=== PATIENT | female | born 1980 | race Caucasian/White ===

== ENCOUNTER 2018-03-19 08:16 | Day surgery (SDC) | payer OTHER ==
[~2018-03-19 08:16] MED LIST: Buffered Lidocaine 0.9% SYRIN* 5 ML/SYR SYRINGE INTRADERM ONE; Dexamethasone TAB* 4 MG PO ONE; DiMENhydriNATE IV* 50 MG/ML VIAL IV PUSH PRN; Famotidine IV* 10 MG/ML 2 ML (20 mg) IV ONE; Morphine INJ* 2 MG/ML 1 ML SYRINGE (TWO MG - NEW SYRINGE VERSION) IV PRN; Naloxone* 0.4 MG/ML 1 ML VIAL IV PRN; Ondansetron TAB* 4 MG PO ONE; PROCHLORPERAZINE INJ 5 MG/ML 2 ML VIAL IV PRN; Scopolamine 1.5 mg* PATCH TRANSDERM ONE; fentaNYL* 50 MCG/ML 2 ML VIAL (100 MCG VIAL) IV PRN; oxyCODONE/Acetamin 5/325 MG* TAB PO PRN
[2018-03-19] MEDS ORDERED: Ondansetron ODT TAB* 4 MG ONE (08:17)
[2018-03-19] MEDS ORDERED: Famotidine IV* 10 MG/ML 2 ML (20 mg) ONE (08:17)
[2018-03-19] MEDS ORDERED: Dexamethasone TAB* 4 MG ONE (08:17)
[2018-03-19] MEDS ORDERED: Scopolamine 1.5 mg* PATCH ONE (08:18)
[2018-03-19] MEDS ORDERED: Buffered Lidocaine 0.9% SYRIN* 5 ML/SYR SYRINGE ONE (08:18)
[2018-03-19] MEDS ORDERED: Ferric Subsulfate* 8 ML BTL ONE (09:14)
[2018-03-19] MEDS ORDERED: Lidocaine 2% W/EPI 1:100,000* 20 ML MDV ONE (09:15)
[2018-03-19] MEDS ORDERED: Iodine Strong (LUGOL'S)* 14 ML BTL ONE (09:15)
[2018-03-19] MEDS ORDERED: Lidocain 1% EPI 1:100,000 * 30 ML MDV ONE (09:15)
[2018-03-19] MEDS ORDERED: Acetic Acid 0.25%* 250 ML BTL ONE (09:18)
[2018-03-19] MEDS ORDERED: fentaNYL* 50 MCG/ML 2 ML VIAL (100 MCG VIAL) ONE (09:37)
[2018-03-19] MEDS ORDERED: KETAMINE HCL* 50 MG/ML 10 ML VIAL ONE (09:37)
[2018-03-19] MEDS ORDERED: Midazolam* 1 MG/ML 5 ML VIAL (5 MG) ONE (09:38)
[2018-03-19] MEDS ORDERED: Propofol* 10 MG/ML 20 ML BTL IV PUSH ONE (10:37)
[2018-03-19] MEDS ORDERED: Lidocaine 2% PF * 5 ML VIAL ONE (10:37)
[2018-03-19] MEDS ORDERED: Ketorolac INJ* 30 MG/ML 1 ML VIAL ONE (11:07)
[2018-03-19] MEDS ORDERED: Fluorescein 10% INJ* 100 MG/ML AMP ONE (11:30)
[2018-03-19] MEDS ORDERED: Morphine VIAL* 10 MG/ML 1 ML VIAL ONE (11:43)
[2018-03-19] MEDS ORDERED: ceFAZolin 2 GM in NS PREMIX(*) 2 GM/100 ML BAG IVPB ONE (12:09)
[2018-03-19 12:49] VITALS: BP 117/93
--- NOTE | 2018-03-20 17:53 | OP ---
DATE OF OPERATION: 03/19/18 [facility] DATE OF : 78 SURGEON: Dr. Heather Joshua. OPERATIONS ANALYST: Dr. Tomas Juan. PRE-OP DIAGNOSES: 1. Cervical intraepithelial neoplasia 3. 2. Severe cervical dysplasia. POST-OP DIAGNOSES: 1. Cervical intraepithelial neoplasia 3. 2. Severe cervical dysplasia. 3. High suspicion for invasive squamous cell carcinoma of the cervix. OPERATIVE PROCEDURE: Cold knife conization, cystoscopy, removal of Mirena IUD. ESTIMATED BLOOD LOSS: Less than 50 cc. URINE OUTPUT: 250 cc of clear yellow urine. FLUIDS: 1300 cc of crystalloid. FINDINGS: Revealed more than double the size of a lesion noted on colposcopy 2 weeks prior. Cone biopsy, apex of dissection site with approximately 1 cm to internal cervical os. It is a small inadvertent colpotomy about 1 cm in size. Normal bilateral ureteral jets noted. Normal bladder mucosa. Mirena IUD intact. SPECIMENS: Cervical cone and ECC. COMPLICATIONS: Inadvertent 1-cm colpotomy. DISPOSITION: Stable to recovery room. DESCRIPTION OF PROCEDURE: The patient was placed in dorsal lithotomy position. The legs were placed in candy cane stirrups. The perineum and vagina were prepped and draped in a sterile standard fashion. The patient was identified using universal protocol for correct procedure, position, and patient. A weighted speculum was placed in the vagina and the cervix was visualized and the area of biopsy from colposcopy had noted to be more than doubled in size from 2 weeks prior. Mirena IUD was removed with sponge forcep and noted to be intact. Lugol solution was applied. A paracervical block was placed using 20 cc of 2% lidocaine with epi. The self-cath was placed with drainage of clear yellow urine, 250 cc of cath was removed. At that point, the 0 Vicryl LigaSure sutures were placed at 3 and 9 o'clock on the cervix and a cervical cold knife conization was carried out using 11 scalpel blade without complications. There was a small colpotomy noted at 6 o'clock of 1 cm in size and this was reapproximated to the remainder of the posterior cervical wall. The area was digitally palpated and noted to be free of any bowel. At that point, the cervical specimen was then opened up at 12 o'clock and sent to Pathology. An endocervical curetting was then obtained. There was quite extensive disease noted, a grave concern for an invasive squamous cell carcinoma. The base of the cold knife conization was then circumferentially made hemostatic with figure -of-eight 0 Vicryl sutures. The cold knife conization site was noted to be hemostatic. At that point, given the need for a wide placement of the 3 and 9 o 'clock sutures, the decision was made to proceed with cystoscopy to assure that she had bilateral ureteral flow. The patient was given half an ampule of fluorescein IV and the cystoscopy was carried out using a 30-degree #22 cystoscope. The cystoscope was inserted. Bladder mucosa was inspected and noted to be intact with no defects and both bilateral ureteral jets were noted to be positive with fluorescein-stained urine. When the completion of the cystoscope was performed, the bladder was drained of urine and attention was then refocused to the cold knife conization, stay sutures at 3 and 9 o'clock were trimmed. The apex of the conization site was noted to be within 1 cm of the internal cervical os. Monsel was placed at the base of the dissection site. Hemostasis was assured. All sponge, needle, instrument, and blade counts were correct throughout the case. The patient was returned to dorsal lithotomy position and taken to recovery room in stable condition; and received 1 dose of 2 g of Ancef in recovery room, IV. Above findings and concerns were reviewed with the patient with plans when the final pathology returns for consultation with [facility] in [place] given the high likelihood of invasive carcinoma of the cervix. [id number]/[facility] #: [id number] [place]
[2018-03-22] MEDS ORDERED: Scopolamine PATCH Remove* 1 NOTE MISC PATCH OFF ONE (06:00)
== END 2018-03-19 14:38 | disposition home or self-care (01) ==
LOC: OR 08:16
PROVIDERS: ATTEND Obstetrics & Gynecology
DX: C53.9 Malignant neoplasm of cervix uteri, unspecified (principal)
CPT/HCPCS: 81025; 88305; 88307; A9270-GY; J0690; J1885; J2250; J2270; J2704; J3010; J8540

== ENCOUNTER → 2018-04-15 09:48 | Emergency (ER) | payer OTHER ==
[~2018-04-15 09:48] MED LIST changes: -Buffered Lidocaine 0.9% SYRIN* 5 ML/SYR SYRINGE INTRADERM ONE; -Dexamethasone TAB* 4 MG PO ONE; -DiMENhydriNATE IV* 50 MG/ML VIAL IV PUSH PRN; -Famotidine IV* 10 MG/ML 2 ML (20 mg) IV ONE; +Iohexol 350* (CONTRAST) 500 ML MDV IV ONE; -Morphine INJ* 2 MG/ML 1 ML SYRINGE (TWO MG - NEW SYRINGE VERSION) IV PRN; +Morphine INJ* 4 MG/ML 1 ML SYRINGE (NEW SYRINGE VERSION) IV ONE; +Morphine INJ* 4 MG/ML 1 ML SYRINGE (NEW SYRINGE VERSION) ONE; +Morphine VIAL* 10 MG/ML 1 ML VIAL IV ONE; +NS 0.9% 1000 ML* 1,000 ML IV ONE; -Naloxone* 0.4 MG/ML 1 ML VIAL IV PRN; -Ondansetron TAB* 4 MG PO ONE; -PROCHLORPERAZINE INJ 5 MG/ML 2 ML VIAL IV PRN; -Scopolamine 1.5 mg* PATCH TRANSDERM ONE; -fentaNYL* 50 MCG/ML 2 ML VIAL (100 MCG VIAL) IV PRN; -oxyCODONE/Acetamin 5/325 MG* TAB PO PRN
--- OUTSIDE RECORDS SUMMARY | 2018-04-15 10:24 | XMS REPORT | Continuity of Care Document ---
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 Unavailable Meghan Lara Primary Care Physician Unavailable Payers Type Date Identification Numbers Payment Provider Subscriber Effective: 2012 Policy Number: [id number] [employer] Ppo Edwin Almazan PayID: [id number] [address] [place] [address] Expires: 2012 Policy Number: [id number] [employer] Edwin Almazan Group Number: [id number] [address] PayID: [id number] [place] [address] Advance Directives Description No Information Available Problems Date Description Provider Status Onset: 10/03/2011 Dysplasia of cervix Heather Joshua MD Active Onset: 07/30/2012 Gynecologic examination Heather Joshua MD Active Onset: 07/30/2012 Screening for malignant neoplasm of Heather Joshua MD Active cervix Onset: 08/09/2013 Morbid obesity Heather Joshua MD Inactive Inactive: 03/19/2016 Family History Date Family Member(s) Problem(s) Comments Father Hypercholesterolemia Mother Hypercholesterolemia Mother Hypertension Mother Just Had Corotid Endardarectomy At Age 62 Mother Lymphoma Number of Children None Number of Siblings Siblings: 2 First Sister Hypercholesterolemia Second Sister Hypercholesterolemia Paternal Grandfather due to Prostate Cancer () Paternal Grandfather due to Old Age () Paternal Grandmother due to Old Age () Maternal Grandfather due to Diabetes () Maternal Grandmother due to Throat Cancer () Social History Type Date Description Comments Sex Unknown Education Highest level of education completed is an associate degree Marital Status Patient is single Living Situation Lives with boyfriend Occupation [employer]ing [employer] Cigarette Use Never smoked cigarettes Alcohol Drinks alcohol occasionally Tobacco Use Start: Unknown Patient has never smoked Drug Use Denies drug use Smoking Status Reviewed: 04/14/18 Patient has never smoked Daily Caffeine Occassional Coffee Exercise Type/Frequency Exercises sporadically Current Seat Belt/Car Seat Always uses a seat belt Currently Active The patient is currently sexually active Contraceptive Methods Does not currently use any method of control STD's Has HPV Allergies, Adverse Reactions, Alerts Description No Known Drug Allergies Medications Medication Date Status Form Strength Qnty SIG Indications Ordering Provider Nystatin 04/14/ Active Cream [id number] 45gm apply to Heather [facility] t/GM area bid MD Tres Singulair / Active Tablets 10mg 1 po qd prn Unknown 0000 Multivitamins / Active 1 po qd Unknown 0000 Calcium Citrate / Active Tablets 250mg Unknown 0000 [id number] / Active 1 po qd Unknown 0000 Vitamin D-3 / Active Capsules 1000Unit 60cap take one Unknown 0000 s tablet by mouth daily. Levocetirizine / Active Tablets 5mg 1 po qd prn Unknown Dihydrochloride 0000 Iron / Active Tablets 240(27Fe) 2 po qwk Unknown 0000 mg Celexa / Active Tablets 20mg 1 po qd Unknown 0000 Ibuprofen / Active Unknown 0000 Oxycontin / Active Unknown 0000 Clindamycin HCL 02/09/ Hx Capsules 300mg 14cap 1 by mouth Yessi 2016 - s twice a day Jump, 12/16/ x 7 ANP-C 2017 Clindamycin HCL 11/04/ Hx Capsules 300mg 14cap 1 by mouth Yessi 2016 - s twice a day Jump, 11/11/ x 7 ANP-C 2016 Mirena (52 MG) 04/17/ Hx IUD 20mcg/24H Tomas Juan MD 2017 Metrogel-Vaginal 02/25/ Hx Gel 0.75% 45gra 1 Tomas 2016 Wanda perez applicator MD Yessica 03/19/ every night 2015 at bedtime x 5 days Levonorgestrel/Et 08/31/ Hx Tablets 0.15-0.03 91tab Take One Heather hinyl Estradiol 2016 - mg s Tablet By Tres, 05/09/ Mouth One 2015 Time Daily Levonorgestrel/Et 11/30/ Hx Tablets 0.15-0.03 91tab Take One Heather hinyl Estradiol 2015 - mg s Tablet By Tres, 08/22/ Mouth One 2015 Time Daily Quasense 06/16/ Hx Tablets 0.15-0.03 1tabs Take 1 Heather 2012 - mg Tablet Tres, 07/22/ Daily 2011 Seasonale 06/17/ Hx Tablets 0.15-0.03 91tab Take One Heather 2007 - mg s Tablet By Tres, 11/30/ Mouth One 2014 Time Daily Aldara 05/20/ Hx Cream 5% 12uni Apply To Yessi 2006 - ts Affected Jump, 04/18/ Area 3X/WK ANP-C 2007 At Bedtime Nasonex /00/ Hx Unknown - 2008 Lexapro /00/ Hx 20mg Unknown - 2014 Zyrtec Allergy 00/ Hx Unknown - 2014 Vitamin D 400 /00/ Hx Unknown - 2014 Biotin 5000 00/ Hx 1 po qd Unknown - 2017 Xyzal /00/ Hx Unknown 2015 Lexapro 00/00/ Hx Tablets 10mg 1 by mouth Unknown 0000 - every day 2016 Fish Oil / Hx Capsules 1200mg 1 by mouth Unknown 0000 - every day 2017 Ginkgo Biloba 00/00/ Hx 1 po qd Unknown - 2017 Medications Administered in Office Medication Date Status Form Strength Qnty SIG Indications Ordering Provider PT SCRN Tbco Administered Injection Heather Id as Non User 018 MD Tres PT SCRN Tbco Administered Injection Heather Id as Non User 018 MD Tres Immunizations Description No Information Available Vital Signs Date Vital Result Comment 04/14/2018 9:44am BP Systolic 118 mmHg BP Diastolic 80 mmHg Height 63.5 inches 5'3.50" Weight 210.00 lb BMI (Body Mass Index) 36.6 kg/m2 Last Menstrual Period [id number] 0 03/17/2018 9:06am BP Systolic 118 mmHg BP Diastolic 82 mmHg Body Temperature 98.9 F Heart Rate 78 /min Respiratory Rate 16 /min Height 63.5 inches 5'3.50" Weight 205.00 lb BMI (Body Mass Index) 35.7 kg/m2 Last Menstrual Period [id number] 0 Parity 0 03/05/2018 2:18pm BP Systolic 116 mmHg BP Diastolic 80 mmHg Height 63.5 inches 5'3.50" Weight 205.00 lb BMI (Body Mass Index) 35.7 kg/m2 Last Menstrual Period [id number] 0 12/30/2017 3:37pm BP Systolic 102 mmHg BP Diastolic 76 mmHg Height 63.5 inches 5'3.50" Weight 204.00 lb BMI (Body Mass Index) 35.6 kg/m2 Last Menstrual Period [id number] 0 11/04/2016 8:40am BP Systolic 126 mmHg BP Diastolic 80 mmHg Height 63.5 inches 5'3.50" Weight 198.00 lb BMI (Body Mass Index) 34.5 kg/m2 Last Menstrual Period [id number] 0 Parity 0 09/06/2016 7:58am BP Systolic 124 mmHg BP Diastolic 80 mmHg Height 63.5 inches 5'3.50" Weight 191.00 lb BMI (Body Mass Index) 33.3 kg/m2 Last Menstrual Period [id number] 0 Parity 0 05/16/2016 2:27pm BP Systolic 98 mmHg BP Diastolic 68 mmHg Height 63.5 inches 5'3.50" Weight 189.00 lb BMI (Body Mass Index) 33.0 kg/m2 Last Menstrual Period [id number] 0 04/17/2016 8:12am BP Systolic 118 mmHg BP Diastolic 82 mmHg Height 63.5 inches 5'3.50" Weight 183.00 lb BMI (Body Mass Index) 31.9 kg/m2 Last Menstrual Period 7680804 0 Parity 0 03/19/2016 3:11pm BP Systolic 120 mmHg BP Diastolic 80 mmHg Height 63.5 inches 5'3.50" Weight 174.00 lb BMI (Body Mass Index) 30.3 kg/m2 Last Menstrual Period 7900061 0 Parity 0 03/19/2016 3:11pm Height 63.5 inches 5'3.50" 02/21/2016 8:06am BP Systolic 106 mmHg BP Diastolic 60 mmHg Height 63.5 inches 5'3.50" Weight 171.00 lb BMI (Body Mass Index) 29.8 kg/m2 Last Menstrual Period 8724089 0 Parity 0 09/01/2015 7:58am BP Systolic 106 mmHg BP Diastolic 76 mmHg Height 63.5 inches 5'3.50" Weight 190.00 lb BMI (Body Mass Index) 33.1 kg/m2 Last Menstrual Period 9997248 0 08/16/2014 9:02am BP Systolic 126 mmHg BP Diastolic 84 mmHg Height 63.75 inches 5'3.75" Weight 230.00 lb BMI (Body Mass Index) 39.8 kg/m2 Last Menstrual Period 4857810 0 Parity 0 08/09/2013 7:35am BP Systolic 118 mmHg BP Diastolic 80 mmHg Height 63.75 inches 5'3.75" Weight 242.00 lb BMI (Body Mass Index) 41.9 kg/m2 0 Parity 0 07/30/2012 8:05am BP Systolic 116 mmHg BP Diastolic 84 mmHg Height 63.5 inches 5'3.50" Weight 233.00 lb BMI (Body Mass Index) 40.6 kg/m2 Last Menstrual Period 0 0 07/22/2011 3:23pm BP Systolic 114 mmHg BP Diastolic 76 mmHg Height 63.25 inches 5'3.25" Weight 223.00 lb BMI (Body Mass Index) 39.2 kg/m2 Last Menstrual Period 0 05/2011-On 3 Month Pill 0 05/21/2010 10:52am BP Systolic 118 mmHg BP Diastolic 78 mmHg Height 63.25 inches 5'3.25" Weight 219.00 lb BMI (Body Mass Index) 38.5 kg/m2 Last Menstrual Period [id number] 0 05/15/2009 8:00am BP Systolic 110 mmHg BP Diastolic 62 mmHg Weight 229.00 lb Last Menstrual Period [id number] 0 10/24/2008 8:02am BP Systolic 112 mmHg BP Diastolic 80 mmHg Height 63 inches 5'3" Weight 220.00 lb BMI (Body Mass Index) 39.0 kg/m2 Last Menstrual Period [id number] 04/18/2008 8:01am BP Systolic 122 mmHg BP Diastolic 78 mmHg Height 63 inches 5'3" Weight 217.00 lb BMI (Body Mass Index) 38.4 kg/m2 Last Menstrual Period [id number] 10/23/2007 2:30pm BP Systolic 116 mmHg BP Diastolic 80 mmHg Height 63 inches 5'3" Weight 207.00 lb BMI (Body Mass Index) 36.7 kg/m2 06/18/2007 8:00am BP Systolic 110 mmHg BP Diastolic 60 mmHg Height 63 inches 5'3" Weight 214.00 lb BMI (Body Mass Index) 37.9 kg/m2 Last Menstrual Period 0 03/18/2007 3:41pm BP Systolic 106 mmHg BP Diastolic 74 mmHg Height 63 inches 5'3" Weight 206.00 lb BMI (Body Mass Index) 36.5 kg/m2 Last Menstrual Period 2075506 0 06/17/2006 10:35am BP Systolic 118 mmHg BP Diastolic 80 mmHg Height 63 inches 5'3" Weight 196.00 lb BMI (Body Mass Index) 34.7 kg/m2 Last Menstrual Period [id number] 05/20/2006 12:56pm BP Systolic 110 mmHg BP Diastolic 78 mmHg Weight 195.00 lb Last Menstrual Period [id number] Results Test Date Facility Test Result H/L Range Note Laboratory test 03/19/2018 [facility] Surgical SEE RESULT 1 , 2 [place] [address] Pathology BELOW [phone] Type And Screen 03/17/2018 [facility] [place] [address] Type [phone] Antibody Screen NEGATIVE CBC Auto Diff 03/17/2018 [facility] White Blood 7.2 10^3/uL 3.5-10.8 [place] [address] Count [phone] Red Blood Count 4.52 10^6/uL 4.00-5.40 Hemoglobin 14.9 g/dL 12.0-16.0 Hematocrit 45 % 35-47 Mean Corpuscular Volume 101 fL High 80-97 Mean Corpuscular Hemoglobin 33 pg High 27-31 Mean Corpuscular HGB Conc 33 g/dL 31-36 Red Cell Distribution Width 13 % 10.5-15 Platelet Count 243 10^3/uL 150-450 Mean Platelet Volume 9.8 um3 7.4-10.4 Abs Neutrophils 4.4 10^3/uL 1.5-7.7 Abs Lymphocytes 2.1 10^3/uL 1.0-4.8 Abs Monocytes 0.5 10^3/uL 0-0.8 Abs Eosinophils 0.2 10^3/uL 0-0.6 Abs Basophils 0 10^3/uL 0-0.2 Abs Nucleated RBC 0 10^3/uL Granulocyte % 61.2 % 38-83 Lymphocyte % 29.5 % 25-47 Monocyte % 6.5 % 0-7 Eosinophil % 2.3 % 0-6 Basophil % 0.5 % 0-2 Nucleated Red Blood Cells % 0.3 HIV 1/2 AB 03/17/2018 [facility] HIV 1 2 Nonreactive Nonreactive 3 [place] [address] Antibody [phone] Laboratory 03/17/2018 [facility] Syphillis Igg Nonreactive Nonreactive 4 [place] [address] W/Reflex RPR [phone] Laboratory 03/05/2018 [facility] Surgical SEE RESULT 5 [place] [address] Pathology BELOW [phone] Laboratory 12/30/2017 [facility] Cytology SEE RESULT 6 [place] [address] BELOW [phone] Laboratory 11/04/2016 [facility] Gardnerella/Ye SEE RESULT BV 7 [place] [address] ast: Vaginal BELOW [phone] Dna Laboratory 09/06/2016 [facility] Cytology SEE RESULT 8 [place] [address] BELOW [phone] GC/Chlamydia 09/06/2016 [facility] Chlamydia Negative [place] [address] trachomatis [phone] Rna Neisseria gonorrhoeae (GC) Rna Negative Negative Laboratory test 09/06/2016 [facility] Human Papilloma POSITIVE Negative 9 [place] [address] Virus Rna [phone] Laboratory test 02/21/2016 [facility] Culture Genital SEE RESULT 10 [place] [address] & Sensitivity BELOW [phone] GC/Chlamydia 02/21/2016 [facility] Chlamydia Negative [place] [address] trachomatis Rna [phone] Neisseria gonorrhoeae (GC) Rna Negative Negative Laboratory test 09/01/2015 [facility] Cytology SEE RESULT BELOW 11 finding [place] [address] [phone] Human Papilloma Virus Rna POSITIVE Negative 12 Laboratory test 08/16/2014 [facility] Cytology RUN DATE: 13 finding [place] [address] 08/17/ <SEE [phone] NOTE> HPV High Risk 08/09/2013 [facility] Human See Comment 14 [place] [address] Papillomavirus [phone] Source HPV High Risk Type 16, PCR Negative Negative HPV High Risk Type 18, PCR Negative Negative HPV Other Risk types Positive Negative 15 Laboratory test 08/09/2013 [facility] Cytology RUN DATE: 16 finding [place] [address] 08/10/ <SEE [phone] NOTE> Laboratory test 07/30/2012 [facility] Cytology RUN DATE: 17 finding [place] [address] 08/04/ <SEE [phone] NOTE> Laboratory test 07/30/2012 [facility] Cytology RUN DATE: 18 finding [place] [address] 07/31/ <SEE [phone] NOTE> Human Papilloma 07/30/2012 [facility] Human Papillomavirus CERV Virus [place] [address] Source [phone] Human Papillomavirus High Risk Negative Negative 19 Laboratory 07/22/2011 [facility] Cytology 20 test finding [place] [address] <SEE NOTE> [phone] Laboratory 05/21/2010 [facility] Cytology 21 test finding [place] [address] <SEE NOTE> [phone] Laboratory 05/15/2009 [facility] Cytology 22 test finding [place] [address] <SEE NOTE> [phone] Laboratory 10/24/2008 [facility] Cytology 23 test finding [place] [address] <SEE NOTE> [phone] Laboratory 04/18/2008 [facility] Cytology 24 [place] [address] <SEE NOTE> [phone] Laboratory 06/18/2007 [facility] Cytology 25 [place] [address] <SEE NOTE> [phone] Laboratory 03/19/2007 [facility] Cytology + HRHPV 26 [place] [address] <SEE NOTE> [phone] GC/ZHL On 03/19/2007 [facility] CHL On Thin NEGATIVE Negative 27 [place] [address] Prep Vial [phone] GC On Thin Prep Vial NEGATIVE Negative 28 Laboratory test 09/21/2006 [facility] Cytology 29 [place] [address] <SEE NOTE> [phone] Laboratory test 05/20/2006 [facility] Surgical [address] [place] [address] Pathology <SEE NOTE> [phone] 1 Pt notified of results. Pt was informed of this possibility as time of surgery given rapid changes that occurred on surface of cervix. Pt to be referred to computer engineering professor Onc at [facility]. Pt notes bleeding has decreased and pain only requires ibuprofen /not taking narcotic now. keg 2 SEE RESULT BELOW Name: EDWIN ALMAZAN : [address]: Heather Joshua MD Acct: [id number] Unit: [id number] AGE: 37 Location: OR Re03/19/18 SEX: F Status: [facility] SPEC: [id number] WAI: 03/19/[address]: Heather Joshua MD REQ: [id number] RECD: 03/19/18 STATUS: SOUT _ ORDERED: LEVEL 4, LEVEL 5 FINAL DIAGNOSIS 1. Uterus, cervix, cone excision: -- Invasive squamous cell carcinoma, with: Histologic grade: Moderately differentiated. Size: 3.2 x 2.5 x 1.0 cm. Depth of invasion / tumor thickness: 10 mm. Horizontal spread: 19 mm (measured on the histologic slide) Local extent: Confined to cervix. Margins: Endocervical, ectocervical, and deep margins are negative. Lymphovascular invasion: Present. Other findings: None. pTNM histopathologic stage: pT1b NX M N/A. 2. Uterus, endocervix, curettage: -- Benign endocervical mucosa with no significant pathologic abnormalities. COMMENT: The previous pap smears were reviewed. Dr. Max reviewed this case in intradepartmental consultation and agrees with the diagnosis. PRE-OPERATIVE DIAGNOSIS High grade squamous intraepithelial lesion CONTINUED ON NEXT PAGE DEPARTMENT OF PATHOLOGY, [address] [place] [address] Naun Max M.D. Director [facility] # [id number] RUN DATE: 03/20/18 [facility] LAB LIVE PAGE 2 Patient: EDWIN ALMAZAN [id number] (Continued) GROSS DESCRIPTION (Continued) GROSS DESCRIPTION 1. The specimen is received in formalin labeled, Cervix Opened at 12:00, and consists of a 4.6 x 3.5 x 3.4 cm previously incised cervix. The incision designates 12: 00. The ectocervix is predominantly involved by a 3.2 by to 2.5 cm majano-pink shaggy friable eroded lesion. The remaining cervix is glistening smooth majano-pink. The ectocervix is glistening majano-pink with normal striations and small amount of adherent mucus. The specimen is inked, serially sectioned in a clockwise radial fashion beginning at 12:00 and the cervix is entirely submitted in cassettes A through Q as follows: A through D-12:00 to 3:00, E through H-3:00 to 6:00, I through L-6:00 and 9:00 in M through Q-9:00 to 12:00. 2. The specimen is received in formalin labeled, Endocervical Curettings, and consists of a 0.8 x 0.5 x 0.2 cm aggregate of majano-pink irregular soft tissue fragments admixed with scant red-brown blood clot. Entirely submitted, one cassette. Signed by and Reported on: Subha Cho MD 03/20/18 1058 END OF REPORT DEPARTMENT OF PATHOLOGY, [address] [place] [address] Naun Max M.D. Director [facility] # [id number] 3 It is recognized that currently available assays for the detection of antibodies to HIV-1 and/or HIV-2 may not detect all infected individuals. HIV antibodies may be undetectable in some stages of the infection and in some clinical conditions. The performance of this assay has not been established for populations of infants or children. Assayed by Chemiluminescence Microparticle Immunoassay on the Siemens Advia Centaur CP. Values obtained with different methods or kits cannot be used interchangeably.The diagnostic specificity of the ADVIA Centaur 1/O/2 Enhanced assay in the low risk population was 99.90% (6052/6058) with a 95% confidence interval of 99.78 to 99.96%. 4 Warning: A positive result is not useful for establishing a diagnosis of syphilis. In most situations, such a result may reflect a prior treated infection; a negative result can exclude a diagnosis of syphilis except for incubating or early primary disease. 5 SEE RESULT BELOW Name: NORAHEDWIN : [address]: Heather Joshua MD Acct: [id number] Unit: [id number] AGE: 37 Location: [facility] Re03/05/18 SEX: F Status: REG REF SPEC: [id number] WAI: 03/05/18-1520 [facility] DR: Heather Joshua MD REQ: [id number] RECD: 03/06/18114 STATUS: LEILA SINGLETON DR: Meghan Lara MD _ ORDERED: LEVEL 4/2 COMMENTS: [id number] FINAL DIAGNOSIS 1. Uterus, cervix biopsy: -- Extensive high-grade squamous intraepithelial lesion (squamous carcinoma in situ, severe dysplasia, SALVADOR III), focally suspicious for invasive carcinoma. See comment. 2. Uterus, endocervix, curettage: -- Extensive high-grade squamous intraepithelial lesion (squamous carcinoma in situ, severe dysplasia, SALVADOR III) with endocervical gland neck extension. Comment: A few foci in part 1 demonstrates paradoxical maturation with rudimentary squamous seth formation. While not conclusive, these findings are more commonly seen with invasion. Appropriate therapeutic intervention should be considered. PRE-OPERATIVE DIAGNOSIS Atypical squamous cells of undetermined significance, HPV positive GROSS DESCRIPTION 1. The specimen is received in formalin labeled, Cervical Biopsy, and consists of a brush-like device with an attached 0.9 x 0.7 by up to 0.2 cm aggregate of majano -white irregular soft tissue fragments which is filtered and submitted entirely in one cassette. 2. The specimen is received in formalin labeled, ECC, and consists of a brush-like device with an attached 1.3 x 0.6 by up to 0.2 cm aggregate of majano-brown irregular soft tissue fragments admixed with scant mucus and red-brown blood clot which is filtered and submitted entirely in one cassette. CONTINUED ON NEXT PAGE DEPARTMENT OF PATHOLOGY, [facility] [address] [place] [address] Naun Max M.D. Director [facility] # [id number] RUN DATE: 03/09/18 [facility] LAB LIVE PAGE 2 Patient: EDWIN ALMAZAN [id number] (Continued) GROSS DESCRIPTION (Continued) Signed by and Reported on: Naun Max MD 1635 END OF REPORT DEPARTMENT OF PATHOLOGY, [facility] [address] [place], [place] [address] Naun Max M.D. Director [facility] # [id number] 6 SEE RESULT BELOW Name: EDWIN ALMAZAN : [address]: Heather Joshua MD Acct: [id number] Unit: [id number] AGE: 37 Location: [facility] Re12/30/17 SEX: F Status: REG REF SPEC: [id number] WAI: 12/30/17 [facility] DR: Heather Joshua MD REQ: [id number] RECD: 12/31/17 STATUS: LEILA SINGLETON DR: Meghan Lara MD _ ORDERED: TP IMAGE ANALYS, BESSEMER BOTTOM MAKER PHYS INTERP, HPV/Thin Prep COMMENTS: [id number] EPITHELIAL CELL ABNORMALITIES Atypical squamous cells of undetermined significance A. Ectocervical/Endocervical Specimen Adequacy: Satisfactory of evaluation Transformation zone component identified Patient Information: HPV: High risk HPV RNA testing regardless of pap results. Actual Specimen Date: 12/30/17 Last Menstrual Date: 12/10/17 Date of Last Specimen: 09/06/16 Previous Abnormal Pap Smears?:Y If Yes, enter Diagnosis: +HPV Date Time Test Result Flag (u) Normal Range 12/30/17 6091 @ HPV RNA POSITIVE An Negative @ @ The high-risk HPV types detected by the assay include: 16, @ 18, 31, 33, 35, 39, 45, 51, 52, 56, 58, 59, 66, and 68. Signed by and Reported on: Subha Cho MD 01/02/18 0959 This Pap test was evaluated with the assistance of the GottaParkPrep Test Imaging System. Due to cytologic findings at the boiler washer microscope, comprehensive manual rescreening by a Human Factors Ergonomist may be required. The Pap Smear is a screening test designed to aid in the detection of premalignant and malignant conditions of the uterine cervix. It is not a diagnostic procedure and should not be used as the sole means of detecting cervical cancer. Both false- positive and false- negative reports do occur. Depending on your risk status, a Pap smear should be obtained and evaluated every 1-3 years. END OF REPORT DEPARTMENT OF PATHOLOGY, [address] [place] [address] Naun Max M.D. Director [facility] # [id number] 7 SEE RESULT BELOW Name: EDWIN ALMAZAN : [address]: Yessi Cheatham Acct: [id number] Unit: [id number] AGE: 36 Location: [facility] Re11/04/16 SEX: F Status: REG REF SPEC: [id number] WAI: 11/04/16-[address]: Yessi Cheatham REQ: [id number] RECD: 11/04/16-120 STATUS: COMP _ SOURCE: VAGINAL SPDESC: ORDERED: Jose,Yeast DNA, Trich DNA COMMENTS: [id number] Procedure Result Reported Site Gardnerella/Yeast: Vaginal DNA Final 11/04/16- 1428 ML Organism 1 POSITIVE GARDNERELLA Organism 2 Negative Lilibeth The presence of G. vaginalis, although suggestive, is not diagnostic for bacterial vaginosis. Results should be interpreted in conjuction with other clinical and laboratory data available. Women with vaginal discharge should be evaluated for risk factors of cervicitis and pelvic inflammatory disease, toxic shock syndrome (S.aureus), and if present, evaluated for organisms not included in this assay such as N. gonorrhoeae, C. trachomatis, Mobiluncus, Mycoplasma and/or Prevotella. Mixed infections may occur. The performance of this test on patient specimens collected during or immediately after antimicrobial therapy is unknown. The presence or absence of Lilibeth species, or G. vaginalis cannot be used as a test for therapeutic success or failure. Trichomonas: Vaginal DNA Probe Final 11/04/16- 1428 ML Organism 1 Negative Trichomonas CONTINUED ON NEXT PAGE * ML=Testing performed at [facility] DEPARTMENT OF PATHOLOGY, [address] [place] [address] Naun Max M.D. Director [facility] # [id number] Patient: EDWIN ALMAZAN [id number] (Continued) Specimen: [id number] Collected: 11/04/16 Received: 11/04/16-1203 (Continued) Procedure Result Reported Site Trichomonas: Vaginal DNA Probe Final (continued) 11/04/16- 1428 The presence or absence of T. vaginalis cannot be used as a test for therapeutic success or failure. * ML - MAIN LAB ([facility]) . END OF REPORT * ML=Testing performed at Main Lab DEPARTMENT OF PATHOLOGY, [address] [place] [address] Naun Max M.D. Director [facility] # [id number] SEE RESULT BELOW Name: NORAHEDWIN S : [address]: Heather Joshua MD Acct: [id number] Unit: [id number] AGE: 36 Location: [facility] Re09/06/16 SEX: F Status: REG REF SPEC: [id number] WAI: 09/06/16 [facility] DR: Heather Joshua MD REQ: [id number] RECD: 09/06/16 STATUS: SOUT _ ORDERED: IMAGE ANALYSIS, PAP SM PATH REV, HPV/Thin Prep COMMENTS: [id number] FINAL DIAGNOSIS Negative for Intraepithelial lesion or Malignancy Reactive cellular changes associated with Inflammation (includes typical repair) A. Ectocervical/Endocervical Specimen Adequacy: Satisfactory of evaluation Transformation zone component identified Patient Information: HPV: High risk HPV RNA testing regardless of pap results. Actual Specimen Date: 09/06/16 Last Menstrual Date: 08/23/16 Date of Last Specimen: 09/01/15 Date Time Test Result Flag (u) Normal Range 09/06/16 0906 HPV RNA POSITIVE H Negative The high-risk HPV types detected by the assay include: 16, 18, 31, 33, 35, 39, 45, 51, 52, 56, 58, 59, 66, and 68. Signed (signature on file) Naun Max MD 1459 This Pap test was evaluated with the assistance of the GottaParkPrep Test Imaging System. Due to cytologic findings at the boiler washer microscope, comprehensive manual rescreening by a Human Factors Ergonomist may be required. The Pap Smear is a screening test designed to aid in the detection of premalignant and malignant conditions of the uterine cervix. It is not a diagnostic procedure and should not be used as the sole means of detecting cervical cancer. Both false- positive and false- negative reports do occur. Depending on your risk status, a Pap smear should be obtained and evaluated every 1-3 years. END OF REPORT * ML=Testing performed at Main Lab DEPARTMENT OF PATHOLOGY, [address] [place] [address] Naun Max M.D. Director [facility] # [id number] The high-risk HPV types detected by the assay include: 16, 18, 31, 33, 35, 39, 45, 51, 52, 56, 58, 59, 66, and 68. 10 SEE RESULT BELOW Name: EDWIN ALMAZAN : [address]: Yessi Cheatham Acct: [id number] Unit: [id number] AGE: 35 Location: [facility]: 02/21/16 SEX: F Status: REG REF SPEC: [id number] WAI: 02/21/16 [facility] DR: Yessi Cheatham REQ: [id number] RECD: 02/21/16-1249 STATUS: COMP _ SOURCE: CERVIX SPDESC: ORDERED: Genital Culture COMMENTS: [id number] Procedure Result Reported Site Genital Culture Final 02/23/16- 1359 ML Organism 1 STREP GROUP B Quantity 1+ Organism 2 JOSE VAGINALIS - PRESUMPTIVE Quantity 3+ Susceptibility testing of penicillins and other B-lactams approved by FDA for treatment of Streptococcus pyogenes (Group A Strep) and Streptococcus agalactiae (Group B Strep) is not necessary for clinical purposes and need not be done routinely, since as with vancomycin, resistant strains have not been recognized. (CLSI P522-E56;p.66) Positive isolates will be saved for one week. Please call the Microbiology Laboratory if further susceptibility testing is needed. * ML - MAIN LAB ([facility]) . END OF REPORT * ML=Testing performed at Main Lab DEPARTMENT OF PATHOLOGY, [address] [place] [address] Naun Max M.D. Director [facility] # [id number] SEE RESULT BELOW Name: EDWIN ALMAZAN : [address]: Heather Joshua MD Acct: [id number] Unit: [id number] AGE: 35 Location: [facility] Re09/01/15 SEX: F Status: REG REF SPEC: [id number] WAI: 09/01/1537 [facility] DR: Heather Joshua MD REQ: [id number] RECD: 09/01/151044 STATUS: SOUT _ ORDERED: IMAGE ANALYSIS, HPV/Thin Prep FINAL DIAGNOSIS Negative for Intraepithelial lesion or Malignancy A. Ectocervical/Endocervical Specimen Adequacy: Satisfactory of evaluation Transformation zone component identified Patient Information: HPV: High risk HPV RNA testing regardless of pap results. Actual Specimen Date: 09/01/15 Last Menstrual Date: 08/12/15 Date of Last Specimen: 08/16/14 Date Time Test Result Flag (u) Normal Range 09/01/15 0837 HPV RNA POSITIVE H Negative The high-risk HPV types detected by the assay include: 16, 18, 31, 33, 35, 39, 45, 51, 52, 56, 58, 59, 66, and 68. Signed VALENTINA Carcamo (ASC) 09/04 0848 This Pap test was evaluated with the assistance of the GottaParkPrep Test Imaging System. Due to cytologic findings at the boiler washer microscope, comprehensive manual rescreening by a Human Factors Ergonomist may be required. The Pap Smear is a screening test designed to aid in the detection of premalignant and malignant conditions of the uterine cervix. It is not a diagnostic procedure and should not be used as the sole means of detecting cervical cancer. Both false- positive and false- negative reports do occur. Depending on your risk status, a Pap smear should be obtained and evaluated every 1-3 years. END OF REPORT * ML=Testing performed at Main Lab DEPARTMENT OF PATHOLOGY, [address] [place] [address] Naun Max M.D. Director [facility] # [id number] The high-risk HPV types detected by the assay include: 16, 18, 31, 33, 35, 39, 45, 51, 52, 56, 58, 59, 66, and 68. 13 RUN DATE: 08/17/14 [facility] LAB LIVE PAGE 1 RUN TIME: [address] [place] [address] Specimen Inquiry Name: EDWIN ALMAZAN : [address]: Heather Joshua MD Acct: [id number] Unit: [id number] AGE: 34 Location: [facility] Re08/16/14 SEX: F Status: REG REF SPEC: [id number] WAI: 08/16/14-[address]: Heather Joshua MD REQ: [id number] RECD: 08/16/14 STATUS: SOUT _ ORDERED: IMAGE ANALYSIS FINAL DIAGNOSIS Negative for Intraepithelial lesion or Malignancy A. Ectocervical/Endocervical Specimen Adequacy: Satisfactory of evaluation Transformation zone component identified Patient Information: HPV: Thin Layer Pap Test w/reflex to high risk HPV RNA testing when ASCUS Actual Specimen Date: 08/16/14 Last Menstrual Date: 07/11/14 Date of Last Specimen: 08/09/13 Signed (signature on file) VALENTINA Carcamo (ASCP) 08/17 1348 This Pap test was evaluated with the assistance of the Subject Companyp Test Imaging System. Due to cytologic findings at the boiler washer microscope, comprehensive manual rescreening by a Human Factors Ergonomist may be required. The Pap Smear is a screening test designed to aid in the detection of premalignant and malignant conditions of the uterine cervix. It is not a diagnostic procedure and should not be used as the sole means of detecting cervical cancer. Both false- positive and false- negative reports do occur. Depending on your risk status, a Pap smear should be obtained and evaluated every 1-3 years. END OF REPORT * ML=Testing performed at Main Lab DEPARTMENT OF PATHOLOGY, [address] [place] [address] Naun Max M.D. Director [facility] # [id number] RESULT: Ectocervical/Endocervical 15 Positive for one or more of the following Other High Risk HPV types: 31, 33, 35, 39, 45, 51, 52, 56, 58, 59, 66, and 68 Test Performed by: [place] [address] Religious Activities Director: Pete Ruiz III, M.D. 16 RUN DATE: 08/10/13 [facility] LAB LIVE PAGE 1 RUN TIME: [address] [place] [address] Specimen Inquiry Name: EDWIN ALMAZAN : [address]: Heather Joshua MD Acct: [id number] Unit: [id number] AGE: 33 Location: [facility] Re08/09/13 SEX: F Status: REG REF SPEC: [id number] WAI: 08/09/[address]: Heather Joshua MD REQ: [id number] RECD: 08/09/13 STATUS: SOUT _ ORDERED: IMAGE ANALYSIS, HPV/Thin Prep FINAL DIAGNOSIS Negative for Intraepithelial lesion or Malignancy COMMENTS: Specimen sent to [facility] in [place], [place] on 08/10/13 by [id number] at 1438. Results will be reported separately. A. Ectocervical/Endocervical Specimen Adequacy: Satisfactory of evaluation Transformation zone component identified Patient Information: HPV: High risk HPV DNA testing regardless of pap results. Actual Specimen Date: 08/09/13 LMP If Unknown: 06/2013 Date of Last Specimen: 07/30/12 Previous Abnormal Pap Smears?:Y If Yes, enter Diagnosis: Atypical Squamous cells of uncertain significance. 2007 HRHPV Signed (signature on file) VALENTINA Carcamo (ASCP) 08/10 1608 This Pap test was evaluated with the assistance of the GottaParkPrep Test Imaging System. Due to cytologic findings at the boiler washer microscope, comprehensive manual rescreening by a Human Factors Ergonomist may be required. The Pap Smear is a screening test designed to aid in the detection of premalignant and malignant conditions of the uterine cervix. It is not a diagnostic procedure and should not be used as the sole means of detecting cervical cancer. Both false- positive and false- negative reports do occur. Depending on your risk status, a Pap smear shoudl be obtained and evaluated every 1-3 years. END OF REPORT * ML=Testing performed at Main Lab DEPARTMENT OF PATHOLOGY, [facility] [address] [place] [address] Naun Max M.D. Director [facility] Permit #[id number] RUN DATE: 08/04/12 [facility] LAB LIVE PAGE 1 RUN TIME: [address] [facility] [employer] [place], [place] [address] Specimen Inquiry Name: EDWIN ALMAZAN : [address]: Heather Joshua MD Acct: [id number] Unit: [id number] AGE: 31 Location: [facility] Re07/30/12 SEX: F Status: REG REF SPEC: [id number] WAI: 07/30/12- SUBM DR: Heather Joshua MD REQ: [id number] RECD: 07/30/12 STATUS: SOUT _ ORDERED: IMAGE ANALYSIS, PAP SM PATH REV, HPV / Thin Prep HiRisk Human Papilloma Virus test results received with preparation and diagnosis completed by [facility], [place], [place]. Results: NEGATIVE High Risk (for types 16, 18, 31, 33, 35, 39, 45, 51, 52, 56, 58, 59, 68) [employer] Hybrid Capture Specimen Transport Media or [employer] mobile ThinPrep PapTest PreservCyt Solution are the collection systems approved for use with this method by the U.S. Food and Drug Administration. Performance characteristics for Auto[employer]te (SurPath) collection device have been determined by Laboratory Medicine and Pathology , [facility], [place], [place]. It has not been cleared or approved by the U.S. Food and Drug Administration. Test Performed by: [facility] Dpt of lab Med and Pathology [address] [place] [address] Religious Activities Director: Pete Ruiz III, M.D. Original hard copy report from [facility] is available upon request by calling Pathology at [phone]. Addendum Signed (signature on file) VALENTINA Burrows (ASCP) 08/04/12 0902 FINAL DIAGNOSIS Negative for Intraepithelial lesion or Malignancy Reactive cellular changes associated with Inflammation (includes typical repair) COMMENTS: Specimen sent to [facility] in [place], [place] on 07/31/12. Results will be reported separately in an Addendum. CONTINUED ON NEXT PAGE * ML=Testing performed at Main Lab DEPARTMENT OF PATHOLOGY, [facility] [address] [place], [place] [address] Naun Max M.D. Director [facility] Permit #[id number] RUN DATE: 08/04/12 [facility] LAB LIVE PAGE 2 RUN TIME: [address] [facility] [employer] [place], [place] [address] Specimen Inquiry Patient: EWDIN ALMAZAN [id number] (Continued) SPECIMEN(S) RECEIVED: (Continued) A. Ectocervical/Endocervical Specimen Adequacy: Satisfactory of evaluation Transformation zone component identified Patient Information: HPV: High risk HPV DNA testing regardless of pap results. Actual Specimen Date: 07/30/12 LMP If Unknown: 04/2012 Date of Last Specimen: 07/22/11 IUD: N ?: N Post Menopausal?: N Hysterectomy?: N Signed (signature on file) Naun Max MD 131 This Pap test was evaluated with the assistance of the Subject [employer]p Test Imaging System. Due to cytologic findings at the boiler washer microscope, comprehensive manual rescreening by a Human Factors Ergonomist may be required. The Pap Smear is a screening test designed to aid in the detection of premalignant and malignant conditions of the uterine cervix. It is not a diagnostic procedure and should not be used as the sole means of detecting cervical cancer. Both false- positive and false- negative reports do occur. Depending on your risk status, a Pap smear shoudl be obtained and evaluated every 1-3 years. END OF REPORT * ML=Testing performed at Main Lab DEPARTMENT OF PATHOLOGY, [facility] [address] [place], [place] [address] aNun Max M.D. Director [facility] Permit #[id number] 18 RUN DATE: 07/31/12 [facility] LAB LIVE PAGE 1 RUN TIME: [address] [facility] [employer] [place], [place] [address] Specimen Inquiry Name: EDWIN ALMAZAN : [address]: Heather Joshua MD Acct: [id number] Unit: [id number] AGE: 31 Location: [facility] Re07/30/12 SEX: F Status: REG REF SPEC: [id number] WAI: 07/30/12- SUBM DR: Heather Joshua MD REQ: [id number] RECD: 07/30/12 STATUS: SOUT _ ORDERED: IMAGE ANALYSIS, PAP SM PATH REV, HPV / Thin Prep FINAL DIAGNOSIS Negative for Intraepithelial lesion or Malignancy Reactive cellular changes associated with Inflammation (includes typical repair) COMMENTS: Specimen sent to [facility] [employer] in [place], [place] on 07/31/12. Results will be reported separately in an Addendum. A. Ectocervical/Endocervical Specimen Adequacy: Satisfactory of evaluation Transformation zone component identified Patient Information: HPV: High risk HPV DNA testing regardless of pap results. Actual Specimen Date: 07/30/12 LMP If Unknown: 04/2012 Date of Last Specimen: 07/22/11 IUD: N ?: N Post Menopausal?: N Hysterectomy?: N Signed (signature on file) Naun Max MD 1314 This Pap test was evaluated with the assistance of the GottaParkPrep Test Imaging System. Due to cytologic findings at the boiler washer microscope, comprehensive manual rescreening by a Human Factors Ergonomist may be required. The Pap Smear is a screening test designed to aid in the detection of premalignant and malignant conditions of the uterine cervix. It is not a diagnostic procedure and should not be used as the sole means of detecting cervical cancer. Both false- positive and false- negative reports do occur. Depending on your risk status, a Pap smear shoudl be obtained and evaluated every 1-3 years. END OF REPORT * ML=Testing performed at Main Lab DEPARTMENT OF PATHOLOGY, [address] [place] [address] Naun Max M.D. Director [facility] Permit #[id number] 19 For types 16, 18, 31, 33, 35, 39, 45, 51, 52, 56, 58, 59 and 68. Test Performed by: [address] [address] Religious Activities Director: Pete Ruiz III, M.D. 20 ---- RUN DATE: 07/23/11 [facility] NMI LIVE PAGE 1 RUN TIME: 1448 Specimen Inquiry RUN USER: INTERFACE -- Name: EDWIN ALMAZAN Status: REG REF Re07/22/11 Age/Sex: 30/F Unit#: [id number] Location: [facility] : [birth year] -- Specimen: [id number] Spec Date: 07/22/[address]: Heather chino MD Spec Type: CYTOLOGY Received: 07/23/11-1238 Copies to: SOURCE ECTOCERVICAL/ENDOCERVICAL Thin Prep with Reflex HPV Test PATIENT INFORMATION ACTUAL COLLECTION DATE: 07/22/11 ? No DATE OF PRIOR SPECIMEN: 05/21/10 PATIENT HISTORY: Last menstrual period on Seasonal BCP ADEQUACY OF SPECIMEN Satisfactory for evaluation * Transformation zone component identified * DIAGNOSIS NEGATIVE FOR INTRAEPITHELIAL LESION OR MALIGNANCY * This Pap test was evaluated with the assistance of the ThinPrep Pap Test Imaging System. The Pap Smear is a screening test designed to aid in the detection of premalign ant and malignant conditions of the uterine cervix. It is not a diagnostic procedure a nd should not be used as the sole means of detecting cervical cancer. Both false- positiv e and false-negative reports do occur. Depending on your risk status, a Pap smear jeri uld be obtained and evaluated every one to three years. Final Interpretation electronically signed by: Romeo WASHINGTON(ASCP) 07/23/11 144 6 -- -- DEPARTMENT OF PATHOLOGY, [address] [place] [address] [facility] Permit #[id number] Osvaldo Burnham M.D. Director Of Professional Services rogerio -- 21 ---- RUN DATE: 05/22/10 [facility] NMI LIVE PAGE 1 RUN TIME: 1556 Specimen Inquiry RUN USER: INTERFACE -- Name: NORAHEDWIN Status: REG REF Re05/21/10 Age/Sex: 29/F Unit#: [id number] Location: [facility] : [birth year] -- Specimen: [id number] SOUT Spec Date: 05/21/[address]: Heather chino MD Spec Type: CYTOLOGY Received: 05/22/10 Copies to: SOURCE ECTOCERVICAL/ENDOCERVICAL Thin Prep with Reflex HPV Test PATIENT INFORMATION ACTUAL COLLECTION DATE: 05/21/10 LAST MENSTRUAL PERIOD: 05/04/10 DATE OF PRIOR SPECIMEN: 05/15/09 ADEQUACY OF SPECIMEN Satisfactory for evaluation * Transformation zone component identified * DIAGNOSIS NEGATIVE FOR INTRAEPITHELIAL LESION OR MALIGNANCY * Reactive cellular changes associated with * Inflammation (includes typical repair) * This Pap test was evaluated with the assistance of the GottaParkPrep Pap Test Imaging System. Due to cytologic findings at the boiler washer microscope, comprehensive manual rescreening by a Human Factors Ergonomist was required. The Pap Smear is a screening test designed to aid in the detection of premalign ant and malignant conditions of the uterine cervix. It is not a diagnostic procedure a nd should not be used as the sole means of detecting cervical cancer. Both false- positiv e and false-negative reports do occur. Depending on your risk status, a Pap smear jeri uld be obtained and evaluated every one to three years. Initial evaluation performed by Kamala ZUNIGA(ASCP) 05/22/10 Final Interpretation electronically signed by: JESUS MAE 05/22/10 1556 -- DEPARTMENT OF PATHOLOGY, [address] [place] [address] [facility] Permit #[id number] Naun Max M.D. Osvaldo Avelar rogerio -- 21 ---- RUN DATE: 05/16/09 [facility] NMI LIVE PAGE 1 RUN TIME: 905 Specimen Inquiry RUN USER: INTERFACE -- Name: EDWIN ALMAZAN Status: REG REF Re05/15/09 Age/Sex: 28/F Unit#: [id number] Location: [facility] : [birth year] -- Specimen: [id number] LEILA Spec Date: 05/15/[address]: Heather chino MD Spec Type: CYTOLOGY Received: 05/15/09-1340 Copies to: SOURCE ECTOCERVICAL/ENDOCERVICAL Thin Prep with Reflex HPV Test PATIENT INFORMATION ACTUAL COLLECTION DATE: 05/15/09 DATE OF PRIOR SPECIMEN: 10/24/08 PATIENT HISTORY: normal, Last menstrual period not given. ADEQUACY OF SPECIMEN Satisfactory for evaluation * Transformation zone component identified * Predominance of white blood cells * Predominance of red blood cells * Scanty epithelial component * DIAGNOSIS NEGATIVE FOR INTRAEPITHELIAL LESION OR MALIGNANCY * This Pap test was evaluated with the assistance of the GottaParkPrep Pap Test Imaging System. The Pap Smear is a screening test designed to aid in the detection of premalign ant and malignant conditions of the uterine cervix. It is not a diagnostic procedure a nd should not be used as the sole means of detecting cervical cancer. Both false- positiv e and false-negative reports do occur. Depending on your risk status, a Pap smear jeri uld be obtained and evaluated every one to three years. Final Interpretation electronically signed by: Romeo WASHINGTON(ASC) 05/16/09 090 6 -- -- DEPARTMENT OF PATHOLOGY, [address] [place] [address] [facility] Permit #[id number] Osvaldo Burnham M.D. Assistant Dir ector -- 23 ---- RUN DATE: 10/25/08 [facility] NMI LIVE PAGE 1 RUN TIME: 912 Specimen Inquiry RUN USER: INTERFACE -- Name: NORAHEDWIN Status: REG REF Re10/24/08 Age/Sex: 28/F Unit#: [id number] Location: [facility] : [birth year] -- Specimen: [id number] LEILA Spec Date: 10/24/[address]: Heather chino MD Spec Type: CYTOLOGY Received: 10/24/08-1503 Copies to: SOURCE ECTOCERVICAL/ENDOCERVICAL Thin Prep with Reflex HPV Test PATIENT INFORMATION ACTUAL COLLECTION DATE: 10/24/08 PREVIOUS ABNORMAL PAP SMEARS Yes LAST MENSTRUAL PERIOD: 09/26/08 DATE OF PRIOR SPECIMEN: 04/18/08 PATIENT HISTORY: Atypical Squamous cells of undetermined significance + Human papilloma virus. ADEQUACY OF SPECIMEN Satisfactory for evaluation * Transformation zone component identified * DIAGNOSIS NEGATIVE FOR INTRAEPITHELIAL LESION OR MALIGNANCY * This Pap test was evaluated with the assistance of the GottaParkPrep Pap Test Imaging System. The Pap Smear is a screening test designed to aid in the detection of premalign ant and malignant conditions of the uterine cervix. It is not a diagnostic procedure a nd should not be used as the sole means of detecting cervical cancer. Both false- positiv e and false-negative reports do occur. Depending on your risk status, a Pap smear jeri uld be obtained and evaluated every one to three years. Final Interpretation electronically signed by: Kamala ZUNIGA(ASCP) 10/25/08912 -- -- DEPARTMENT OF PATHOLOGY, [address] [place] [address] [facility] Permit #[id number] Naun Max M.D. Director Jesus Mae M.D. Director Of Professional Services Dir rogerio -- 23 ---- RUN DATE: 04/19/08 [facility] NMI LIVE PAGE 1 RUN TIME: 1444 Specimen Inquiry RUN USER: INTERFACE -- Name: EDWIN ALMAZAN Status: REG REF Re04/18/08 Age/Sex: 27/F Unit#: [id number] Location: [facility] : [birth year] -- Specimen: [id number] LEILA Spec Date: 04/18/[address]: Heather chino MD Spec Type: CYTOLOGY Received: 04/18/08-1425 Copies to: SOURCE ECTOCERVICAL/ENDOCERVICAL Thin Prep with Reflex HPV Test PATIENT INFORMATION ACTUAL COLLECTION DATE: 04/18/08 PREVIOUS ABNORMAL PAP SMEARS yes LAST MENSTRUAL PERIOD: 04/05/08 DATE OF PRIOR SPECIMEN: 06/18/07 Atypical squamous cells of undetermined significance. ADEQUACY OF SPECIMEN Satisfactory for evaluation * Transformation zone component identified * DIAGNOSIS NEGATIVE FOR INTRAEPITHELIAL LESION OR MALIGNANCY * Reactive cellular changes associated with * Inflammation (includes typical repair) * This Pap test was evaluated with the assistance of the [employer]ical Pap Test Imaging System. Due to cytologic findings at the boiler washer microscope, comprehensive manual rescreening by a Human Factors Ergonomist was required. The Pap Smear is a screening test designed to aid in the detection of premalign ant and malignant conditions of the uterine cervix. It is not a diagnostic procedure a nd should not be used as the sole means of detecting cervical cancer. Both false- positive and false-negative reports do occur. Depending on your risk status, a Pap smear jeri uld be obtained and evaluated every one to three years. Initial evaluation performed by Romeo WASHINGTON(ASCP) 04/19/08 -- DEPARTMENT OF PATHOLOGY, [address] [place] [address] [facility] Permit #[id number] Naun Max M.D. Director of Laboratories -- -- RUN DATE: 04/19/08 [facility] NMI LIVE PAGE 2 RUN TIME: 1704 Specimen Inquiry RUN USER: INTERFACE -- Name: EDWIN ALMAZAN Status: REG REF Re04/18/08 Age/Sex: 27/F Unit#: [id number] Location: [facility] : 78 -- -- CONTINUED -- Final Interpretation electronically signed by: NAUN MAX MD 04/19/08 14 44 -- -- DEPARTMENT OF PATHOLOGY, [address] [place] [address] [facility] Permit #[id number] Naun Max M.D. Director of Laboratories -- 25 ---- RUN DATE: 07/01/07 [facility] NMI LIVE PAGE 1 RUN TIME: 1409 Specimen Inquiry RUN USER: INTERFACE [id number] EDWIN ALMAZAN 26/F <REG REF 06/18> ([id number]) KHALIDA Hansen CNP, Yessi Shirley -- Specimen: [id number] SOUT Spec Date: 06/18/[address]: Yessi Kellogg mp [facility] Spec Type: CYTOLOGY Received: 06/19/07-1412 Copies to: SOURCE ECTOCERVICAL/ENDOCERVICAL Thin Prep with Reflex HPV Test PATIENT INFORMATION ACTUAL COLLECTION DATE: 06/18/07 PREVIOUS ABNORMAL PAP SMEARS Yes PATIENT HISTORY: Prior 03/22 Low grade squamous intraepithelial lesion, Colposcopy 06/22 Pap normal 09/20,03/22 ADEQUACY OF SPECIMEN Satisfactory for evaluation * Transformation zone component identified * DIAGNOSIS EPITHELIAL CELL ABNORMALITIES * Squamous cell * Atypical squamous cells * Of undetermined significance (ASC-US) * NOTE Specimen sent to [facility], [place], [place] for high risk HPV DNA testing on 06/24/07 at 1600 by DB. ADDENDUM Addendum #1 Entered: 07/01/07-1405 [facility] Human Papilloma Virus test results received with preparation and diagnosis completed by [facility] [place]. Results: POSITIVE High Risk (HPV types 16, 18, 31, 33, 35, 39, 45, 51, 52, 56, 58, 59, 68) (Original consultation report to follow). -- DEPARTMENT OF PATHOLOGY, [address] [place] [address] [facility] Permit #[id number] Naun Max M.D. Director of Laboratories -- -- RUN DATE: 07/01/07 [facility] NMI LIVE PAGE 2 RUN TIME: 1409 Specimen Inquiry RUN USER: INTERFACE -- SPEC #: [id number] PATIENT: EDWIN ALMAZAN #[id number] (Continued) -- ADDENDUM (Continued) Addendum Review Romeo WASHINGTON([facility]) 07/01/07 -- This Pap test was evaluated with the assistance of the GottaParkPrep Pap Test Imaging System. Due to cytologic findings at the boiler washer microscope, comprehensive manual rescreening by a Human Factors Ergonomist was required. The Pap Smear is a screening test designed to aid in the detection of premalign ant and malignant conditions of the uterine cervix. It is not a diagnostic procedure a nd should not be used as the sole means of detecting cervical cancer. Both false- positive and false-negative reports do occur. Depending on your risk status, a Pap smear jeri uld be obtained and evaluated every one to three years. Initial evaluation performed by Romeo WASHINGTON([facility]) 06/23/07 Final Interpretation electronically signed by: NAUN MAX MD 06/24/07 17 04 -- -- DEPARTMENT OF PATHOLOGY, [address] [place] [address] [facility] Permit #[id number] Naun Max M.D. Director of Laboratories -- 26 ---- RUN DATE: 04/01/07 [facility] NMI LIVE PAGE 1 RUN TIME: 1434 Specimen Inquiry RUN USER: INTERFACE [id number] EDWIN ALMAZAN / <REG REF 03/18> ([id number]) Yessi Thibodeaux CNP -- Specimen: [id number] SOUT Spec Date: 03/18/[address]: Yessi Kellogg mp, CNP Spec Type: CYTOLOGY Received: 03/23/07-0950 Copies to: SOURCE ECTOCERVICAL/ENDOCERVICAL Thin Prep with Reflex HPV Test PATIENT INFORMATION ACTUAL COLLECTION DATE: 03/18/07 PREVIOUS ABNORMAL PAP SMEARS Yes LAST MENSTRUAL PERIOD: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
--- OUTSIDE RECORDS SUMMARY | 2018-04-15 10:24 | XMS REPORT ---
:1980 External Reference #:[id number] Author Organization practice or student teacher [facility] Address [address] [place] [address] Phone [phone] Care Team Providers Name Role Phone Meghan Lara Care Team Information Bottle Tester Unavailable Meghan Lara Primary Care Physician Unavailable Payers Type Date Identification Numbers Payment Provider Subscriber Commercial Effective: Policy Number: [id number] [employer] o Edwin lAmazan 2012 PayID: [id number] [address] [place] [address] Commercial Expires: 2012 Policy Number: [id number] [facility] Edwin Almazan Group Number: [id number] [address] PayID: [id number] [place] [address] Problems Date Description Provider Status Onset: 10/03/2011 [...] () Social History Type Date Description Comments Education Highest level of education completed is an associate degree Marital Status Patient is single Living Situation Lives with boyfriend Occupation [employer] Cigarette Use Never smoked cigarettes Alcohol Drinks alcohol occasionally Smoking Patient has never smoked Drug Use Denies drug use Daily Caffeine Occassional Coffee Exercise Type/Frequency Current Exercises sporadically Seat Belt/Car Seat Always uses a seat belt Currently Active The patient is currently sexually active Contraceptive Methods Current methods of control used include levonorgestrel Ius 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 Levocetirizine / Active Tablets 5mg 1 po qd prn Unknown Dihydrochloride 0000 Fish Oil / Active Capsules 1200mg 1 by mouth Unknown 0000 every day Iron / Active Tablets 240(27Fe) 2 po qwk Unknown 0000 mg Celexa / Active Tablets 20mg 1 po qd Unknown 0000 Ginkgo Biloba / Active 1 po qd Unknown 0000 Clindamycin HCL 02/09/ Hx Capsules 300mg 14cap 1 by mouth Yessi 2016 - s twice a day Jump, 12/16/ x 7 ANP-C 2017 Clindamycin HCL 11/04/ Hx Capsules 300mg 14cap 1 by mouth Yessi 2016 - twice a day Jump, 11/11/ x 7 ANP-C 2016 Metrogel-Vaginal 02/25/ Hx Gel 0.75% 45gra 1 Tomas 2016 - m applicator MD Yessica 03/19/ every night 2015 [...] ts Affected Jump, 04/18/ Area 3X/WK ANP-C 2008 At Bedtime Nasonex /00/ Hx Unknown 0000 - 2008 Lexapro // Hx 20mg Unknown - 2014 Zyrtec Allergy /00/ Hx Unknown - 2014 Vitamin D 400 /00/ Hx Unknown 0000 - 2014 Xyzal /00/ Hx Unknown - 2015 Lexapro /00/ Hx Tablets 10mg 1 by mouth Unknown 0000 - every day 2016 Medications Administered in Office Medication Date Status Form Strength Qnty SIG Indications Ordering Provider PT SCRN Tbco Administered Injection Heather Id as Non User 018 MD Tres PT SCRN Tbco Administered Injection Heather Id as Non User 018 MD Tres Vital Signs Date Vital Result Comment 03/17/2018 BP Systolic 118 mmHg BP Diastolic 82 mmHg Body Temperature 98.9 F Heart Rate 78 /min Respiratory Rate 16 /min Height 63.5 inches 5'3.50" Weight 205.00 lb BMI (Body Mass Index) 35.7 kg/m2 Last Menstrual Period 2602572 0 Parity 0 03/05/2018 BP Systolic 116 mmHg BP Diastolic 80 mmHg Height 63.5 inches 5'3.50" Weight 205.00 lb BMI (Body Mass Index) 35.7 kg/m2 Last Menstrual Period 1471585 0 12/30/2017 BP Systolic 102 mmHg BP Diastolic 76 mmHg Height 63.5 inches 5'3.50" Weight 204.00 lb BMI (Body Mass Index) 35.6 kg/m2 Last Menstrual Period 6235742 0 11/04/2016 BP Systolic 126 mmHg BP Diastolic 80 mmHg Height 63.5 inches 5'3.50" Weight 198.00 lb BMI (Body Mass Index) 34.5 kg/m2 Last Menstrual Period 4182866 0 Parity 0 09/06/2016 BP Systolic 124 mmHg BP Diastolic 80 mmHg Height 63.5 inches 5'3.50" Weight 191.00 lb BMI (Body Mass Index) 33.3 kg/m2 Last Menstrual Period 4890196 0 Parity 0 05/16/2016 BP Systolic 98 mmHg BP Diastolic 68 mmHg Height 63.5 inches 5'3.50" Weight 189.00 lb BMI (Body Mass Index) 33.0 kg/m2 Last Menstrual Period 6324228 0 04/17/2016 BP Systolic 118 mmHg BP Diastolic 82 mmHg Height 63.5 inches 5'3.50" Weight 183.00 lb BMI (Body Mass Index) 31.9 kg/m2 Last Menstrual Period 6210971 0 Parity 0 03/19/2016 BP Systolic 120 mmHg BP Diastolic 80 mmHg Height 63.5 inches 5'3.50" Weight 174.00 lb BMI (Body Mass Index) 30.3 kg/m2 Last Menstrual Period 8123980 0 Parity 0 03/19/2016 Height 63.5 inches 5'3.50" 02/21/2016 BP Systolic 106 mmHg BP Diastolic 60 mmHg Height 63.5 inches 5'3.50" Weight 171.00 lb BMI (Body Mass Index) 29.8 kg/m2 Last Menstrual Period 4796904 0 Parity 0 09/01/2015 BP Systolic 106 mmHg BP Diastolic 76 mmHg Height 63.5 inches 5'3.50" Weight 190.00 lb BMI (Body Mass Index) 33.1 kg/m2 Last Menstrual Period 1271104 0 08/16/2014 BP Systolic 126 mmHg BP Diastolic 84 mmHg Height 63.75 inches 5'3.75" Weight 230.00 lb BMI (Body Mass Index) 39.8 kg/m2 Last Menstrual Period 8063169 0 Parity 0 08/09/2013 BP Systolic 118 mmHg BP Diastolic 80 mmHg Height 63.75 inches 5'3.75" Weight 242.00 lb BMI (Body Mass Index) 41.9 kg/m2 0 Parity 0 07/30/2012 BP Systolic 116 mmHg BP Diastolic 84 mmHg Height 63.5 inches 5'3.50" Weight 233.00 lb BMI (Body Mass Index) 40.6 kg/m2 Last Menstrual Period 0 0 07/22/2011 BP Systolic 114 mmHg BP Diastolic 76 mmHg Height 63.25 inches 5'3.25" Weight 223.00 lb BMI (Body Mass Index) 39.2 kg/m2 Last Menstrual Period 0 05/2011-On 3 Month Pill 0 05/21/2010 BP Systolic 118 mmHg BP Diastolic 78 mmHg Height 63.25 inches 5'3.25" Weight 219.00 lb BMI (Body Mass Index) 38.5 kg/m2 Last Menstrual Period 4207938 0 05/15/2009 BP Systolic 110 mmHg BP Diastolic 62 mmHg Weight 229.00 lb Last Menstrual Period 9025468 0 10/24/2008 BP Systolic 112 mmHg BP Diastolic 80 mmHg Height 63 inches 5'3" Weight 220.00 lb BMI (Body Mass Index) 39.0 kg/m2 Last Menstrual Period 9137963 04/18/2008 BP Systolic 122 mmHg BP Diastolic 78 mmHg Height 63 inches 5'3" Weight 217.00 lb BMI (Body Mass Index) 38.4 kg/m2 Last Menstrual Period 2782277 10/23/2007 BP Systolic 116 mmHg BP Diastolic 80 mmHg Height 63 inches 5'3" Weight 207.00 lb BMI (Body Mass Index) 36.7 kg/m2 06/18/2007 BP Systolic 110 mmHg BP Diastolic 60 mmHg Height 63 inches 5'3" Weight 214.00 lb BMI (Body Mass Index) 37.9 kg/m2 Last Menstrual Period 0 03/18/2007 BP Systolic 106 mmHg BP Diastolic 74 mmHg Height 63 inches 5'3" Weight 206.00 lb BMI (Body Mass Index) 36.5 kg/m2 Last Menstrual Period 8601339 0 06/17/2006 BP Systolic 118 mmHg BP Diastolic 80 mmHg Height 63 inches 5'3" Weight 196.00 lb BMI (Body Mass Index) 34.7 kg/m2 Last Menstrual Period 1171999 05/20/2006 BP Systolic 110 mmHg BP Diastolic 78 mmHg Weight 195.00 lb Last Menstrual Period 2007231 Results Test Date Test Result H/L Range Note Laboratory test 03/17/2018 Syphillis Igg <pending> finding W/Reflex RPR Laboratory test 03/05/2018 Surgical Pathology SEE RESULT BELOW 1 finding Laboratory test 12/30/2017 Cytology SEE RESULT BELOW 2 finding Laboratory test 11/04/2016 Gardnerella/Yeast: SEE RESULT BELOW BV 3 finding Vaginal Dna Laboratory test 09/06/2016 Cytology SEE RESULT BELOW 4 finding GC/Chlamydia Dna 09/06/2016 Chlamydia Negative Negative Probe trachomatis Rna Neisseria gonorrhoeae (GC) Rna Negative Negative Laboratory test 09/06/2016 Human Papilloma Virus POSITIVE Negative 5 finding Rna Laboratory test 02/21/2016 Culture Genital & SEE RESULT BELOW 6 finding Sensitivity GC/Chlamydia Dna 02/21/2016 Chlamydia trachomatis Negative Negative Probe Rna Neisseria gonorrhoeae (GC) Rna Negative Negative Laboratory test finding 09/01/2015 Cytology SEE RESULT BELOW 7 Human Papilloma Virus Rna POSITIVE Negative 8 Laboratory test 08/16/2014 Cytology RUN DATE: finding <SEE NOTE> HPV High Risk 08/09/2013 Human Papillomavirus See Comment 10 Source HPV High Risk Type 16, PCR Negative Negative HPV High Risk Type 18, PCR Negative Negative HPV Other Risk types Positive Negative 11 Laboratory test finding 08/09/2013 Cytology RUN DATE: <SEE NOTE> Laboratory test finding 07/30/2012 Cytology RUN DATE: <SEE NOTE> Laboratory test finding 07/30/2012 Cytology RUN DATE: <SEE NOTE> Human Papilloma Virus 07/30/2012 Human Papillomavirus CERV Source Human Papillomavirus High Risk Negative Negative 15 Laboratory test 07/22/2011 Cytology <SEE 16 finding NOTE> Laboratory test 05/21/2010 Cytology <SEE 17 finding NOTE> Laboratory test 05/15/2009 Cytology <SEE 18 finding NOTE> Laboratory test 10/24/2008 Cytology <SEE 19 finding NOTE> Laboratory test 04/18/2008 Cytology <SEE 20 finding NOTE> Laboratory test 06/18/2007 Cytology <SEE 21 finding NOTE> Laboratory test 03/19/2007 Cytology <SEE + HRHPV 22 finding NOTE> GC/ZHL On Thin Prep 03/19/2007 CHL On Thin Prep NEGATIVE Negative 23 Vial GC On Thin Prep Vial NEGATIVE Negative 24 Laboratory test 09/21/2006 Cytology <SEE NOTE> 25 finding Laboratory test 05/20/2006 Surgical Pathology <SEE NOTE> 26 finding 1 SEE RESULT BELOW Name: EDWIN ALMAZAN : [address]: Heather Joshua MD Acct: [id number] Unit: [id number] AGE: 37 Location: [facility] Re03/05/18 SEX: F Status: REG REF SPEC: [id number] WAI: 03/05/18-[address] [facility] [address]: Heather Joshua MD REQ: [id number] RECD: 03/06/18-1147 STATUS: LEILA SINGLETON DR: Meghan Lara MD _ ORDERED: LEVEL 4/2 COMMENTS: [id number] FINAL DIAGNOSIS 1. Uterus, cervix biopsy: -- [...] CONTINUED ON NEXT PAGE DEPARTMENT OF PATHOLOGY, [address] [place] [address] Naun Max M.D. Director [facility] # [id number] RUN DATE: 03/09/18 [facility] LAB LIVE PAGE 2 Patient: CHELSI ALMAZANECCA [id number] (Continued) GROSS DESCRIPTION (Continued) Signed by and Reported on: Naun Max MD 1635 END OF REPORT DEPARTMENT OF PATHOLOGY, [address] [place] [address] Naun Max M.D. Director [facility] # [id number] 2 SEE RESULT BELOW Name: KRISTYN ALMAZANCA : [address]: Heather Joshua MD Acct: [id number] Unit: [id number] AGE: 37 Location: [facility] Re12/30/17 SEX: F Status: REG REF SPEC: [id number] WAI: 12/30/17-[address] [facility] [address]: Heather Joshua MD REQ: [id number] RECD: 12/31/17 STATUS: SOUDennise SINGLETON DR: Meghan Lara MD _ ORDERED: TP IMAGE ANALYS, SALESPERSON [employer] PHYS INTERP, HPV/Thin Prep COMMENTS: [id number] EPITHELIAL CELL ABNORMALITIES Atypical squamous cells of undetermined significance A. Ectocervical/Endocervical Specimen Adequacy: Satisfactory of evaluation Transformation zone component identified Patient Information: HPV: High risk HPV RNA testing regardless of pap results. Actual Specimen Date: 12/30/17 Last Menstrual Date: 12/10/17 Date of Last Specimen: 09/06/16 Previous Abnormal Pap Smears?:Y If Yes, enter Diagnosis: +HPV Date Time Test Result Flag (u) Normal Range 12/30/171547 @ HPV RNA POSITIVE An Negative @ @ The high-risk HPV types detected by the assay include: 16, @ 18, 31, 33, 35, 39, 45, 51, 52, 56, 58, 59, 66, and 68. Signed by and Reported on: Subha Cho MD 01/02/18 0959 This Pap test was evaluated with the assistance of the ThinPrep Test Imaging System. Due to cytologic findings at the supervisor winter microscope, comprehensive manual rescreening by a Psychiatric Technician may be required. The Pap Smear is [...] years. END OF REPORT DEPARTMENT OF PATHOLOGY, [address] [place] [address] Naun Max M[address]D. Director [facility] # [id number] 3 SEE RESULT BELOW Name: KRISTYN ALMAZANCA : [address]: Yessi Cheatham Acct: [id number] Unit: [id number] AGE: 36 Location: [facility] Re11/04/16 SEX: F Status: REG REF SPEC: [id number] WAI: 11/04/16 [facility] [address]: Yessi Cheatham REQ: [id number] RECD: 11/04/16 STATUS: COMP _ SOURCE: VAGINAL SPDESC: ORDERED: Jose,Yeast DNA, Trich DNA COMMENTS: [id number] Procedure Result Reported Site Gardnerella/Yeast: Vaginal DNA Final 11/04/16- 1427 ML Organism 1 POSITIVE GARDNERELLA Organism 2 [...] failure. Trichomonas: Vaginal DNA Probe Final 11/04/16- 1427 ML Organism 1 Negative Trichomonas CONTINUED ON NEXT PAGE * ML=Testing performed at [facility] Lab DEPARTMENT OF PATHOLOGY, [address] [place] [address] Naun Max M.D. Director [facility] # [id number] Patient: EDWIN ALMAZAN [id number] (Continued) Specimen: [id number] Collected: 11/04/16 Received: 11/04/16 (Continued) Procedure Result Reported Site Trichomonas: Vaginal DNA Probe Final (continued) 11/04/16 1213 The presence or absence of T. vaginalis cannot be used as a test for therapeutic success or failure. * ML - MAIN LAB ([facility]) . END OF REPORT * ML=Testing performed at Main Lab DEPARTMENT OF PATHOLOGY, [address] [place] [address] Naun Max M.D. Director [facility] # [id number] 4 SEE RESULT BELOW Name: EDWIN ALMAZAN : [address]: Heather Joshua MD Acct: [id number] Unit: [id number] AGE: 36 Location: [facility] Re09/06/16 SEX: F Status: REG REF SPEC: [id number] WAI: 09/06/16 [facility] [address]: Heather Joshua MD REQ: [id number] RECD: 09/06/16220 STATUS: SOUT _ ORDERED: IMAGE ANALYSIS, PAP SM PATH REV, HPV/Thin Prep COMMENTS: [id number] FINAL DIAGNOSIS Negative for Intraepithelial lesion or [...] was evaluated with the assistance of the iSTAR MedicalPrep Test Imaging System. Due to cytologic findings at the supervisor winter microscope, comprehensive manual rescreening by a Psychiatric Technician may be required. The Pap Smear is [...] performed at Main Lab DEPARTMENT OF PATHOLOGY, [address] [place] [address] Naun Max M.D. Director [facility] # [id number] 5 The high-risk HPV types detected by the assay include: 16, 18, 31, 33, 35, 39, 45, 51, 52, 56, 58, 59, 66, and 68. 6 SEE RESULT BELOW Name: EDWIN ALMAZAN : [address]: Yessi Cheatham Acct: [id number] Unit: [id number] AGE: 35 Location: [facility] Re02/21/16 SEX: F Status: REG REF SPEC: [id number] WAI: 02/21/[address]: Yessi Cheatham REQ: [id number] RECD: 02/21/16-7081 STATUS: COMP _ SOURCE: CERVIX SPDESC: ORDERED: Genital Culture COMMENTS: [id number] Procedure Result Reported Site Genital Culture Final [...] resistant strains have not been recognized. (CLSI R635-M61;p.66) Positive isolates will be saved for one week. Please call the Microbiology Laboratory if further susceptibility testing is needed. * ML - MAIN LAB ([facility]) . END OF REPORT * ML=Testing performed at Main Lab DEPARTMENT OF PATHOLOGY, [address] [place] [address] Naun Max M.D. Director [facility] # [id number] 7 SEE RESULT BELOW Name: EDWIN ALMAZAN : [address]: Heather Joshua MD Acct: [id number] Unit: [id number] AGE: 35 Location: [facility] Re09/01/15 SEX: F Status: REG REF SPEC: [id number] WAI: 09/01/[address]: Heather Joshua MD REQ: [id number] RECD: 09/01/15 STATUS: SOUT _ ORDERED: IMAGE ANALYSIS, HPV/Thin [...] 59, 66, and 68. Signed VALENTINA Carcamo (ASCP) 09/04 0848 This Pap test was evaluated with the assistance of the iSTAR MedicalPrep Test Imaging System. Due to cytologic findings at the supervisor winter microscope, comprehensive manual rescreening by a Psychiatric Technician may be required. The Pap Smear is [...] performed at Main Lab DEPARTMENT OF PATHOLOGY, [address] [place] [address] Naun Max M[address]D. Director [facility] # [id number] 8 The high-risk HPV types detected by the assay include: 16, 18, 31, 33, 35, 39, 45, 51, 52, 56, 58, 59, 66, and 68. 9 RUN DATE: 08/17/14 [facility] LAB LIVE PAGE 1 RUN TIME: [address] [place] [address] Specimen Inquiry Name: EDWIN ALMAZAN : [address]: Heather Joshua MD Acct: [id number] Unit: [id number] AGE: 34 Location: [facility] Re08/16/14 SEX: F Status: REG REF SPEC: [id number] WAI: 08/16/14-9[address] [facility] [address]: Heather Joshua MD REQ: [id number] RECD: 08/16/14 STATUS: SOUT _ ORDERED: IMAGE [...] (signature on file) VALENTINA Carcamo (ASCP) 08/17 7005 This Pap test was evaluated with the assistance of the ThinPrep Test Imaging System. Due to cytologic findings at the supervisor winter microscope, comprehensive manual rescreening by a Psychiatric Technician may be required. The Pap Smear is [...] performed at Main Lab DEPARTMENT OF PATHOLOGY, [facility] [employer] [place] [address] Naun Max M.D. Director [facility] # [id number] 10 RESULT: Ectocervical/Endocervical 11 Positive for one or more of the following Other High Risk HPV types: 31, 33, 35, 39, 45, 51, 52, 56, 58, 59, 66, and 68 Test Performed by: [address] [address] Archival Records Clerk: Pete Ruiz III, M.D. 12 RUN DATE: 08/10/13 [facility] LAB LIVE PAGE 1 RUN TIME: [address] [place] [address] Specimen Inquiry Name: EDWIN ALMAZAN : [address]: Heather Joshua MD Acct: [id number] Unit: [id number] AGE: 33 Location: [facility] Re08/09/13 SEX: F Status: REG REF SPEC: [id number] WAI: 08/09/13 [facility] [address]: Heather Joshua MD REQ: [id number] RECD: 08/09/13-160 STATUS: SOUT _ ORDERED: IMAGE ANALYSIS, HPV/Thin Prep FINAL DIAGNOSIS Negative for Intraepithelial lesion or Malignancy COMMENTS: Specimen sent to [facility] [employer] in [place], [place] on 08/10/13 by [id number] at 1438. Results will be reported separately. [...] evaluated with the assistance of the ThinPrep Test Imaging System. Due to cytologic findings at the supervisor winter microscope, comprehensive manual rescreening by a Psychiatric Technician may be required. The Pap Smear is [...] performed at Main Lab DEPARTMENT OF PATHOLOGY, [facility] [employer] [place], [place] [address] Naun Max M.D. Director [facility] Permit #[id number] RUN DATE: 08/04/12 [facility] LAB LIVE PAGE 1 RUN TIME: 901 [facility] [place] [address] Specimen Inquiry Name: EDWIN ALMAZAN : [address]: Heather Joshua MD Acct: [id number] Unit: [id number] AGE: 31 Location: [facility] Re07/30/12 SEX: F Status: REG REF SPEC: [id number] WAI: 07/30/12- [facility] DR: Heather Joshua MD REQ: [id number] RECD: 07/30/12 STATUS: SOUT _ ORDERED: IMAGE ANALYSIS, PAP SM PATH REV, HPV / Thin Prep HiRisk Human Papilloma Virus test results received with preparation and diagnosis completed by [facility] [employer], [place], [place]. Results: NEGATIVE High Risk (for types 16, 18, 31, 33, 35, 39, 45, 51, 52, 56, 58, 59, 68) DiGene Hybrid Capture Specimen Transport Media or Cytyc ThinPrep PapTest PreservCyt Solution are the collection systems approved for use with this method by the U.S. Food and Drug Administration. Performance characteristics for AutoCyte (SurPath) collection device have been determined by Laboratory Medicine and Pathology , [facility], [place], [place]. It has not been cleared or approved by the U.S. Food and Drug Administration. Test Performed by: [facility] Dpt of lab Med and Pathology [address] [place] [address] Archival Records Clerk: Pete Ruiz III, M.D. Original hard copy report from [facility] is available upon request by calling Pathology at [phone]. Addendum Signed (signature on file) VALENTINA Burrows (ASCP) 08/04/12901 FINAL DIAGNOSIS Negative for Intraepithelial lesion or Malignancy Reactive cellular changes associated with Inflammation (includes typical repair) COMMENTS: Specimen sent to [facility] in [place], [place] on 07/31/12. Results will be reported separately in an Addendum. CONTINUED ON NEXT PAGE * ML=Testing performed at Main Lab DEPARTMENT OF PATHOLOGY, [facility] [employer] [place], [place] [address] Naun Max M.D. Director [facility] Permit #[id number] RUN DATE: 08/04/12 [facility] LAB LIVE PAGE 2 RUN TIME: [address] [place] [address] Specimen Inquiry Patient: EDWIN ALMAZAN [id number] (Continued) SPECIMEN(S) RECEIVED: (Continued) A. Ectocervical/Endocervical Specimen Adequacy: Satisfactory of evaluation Transformation zone component identified Patient Information: HPV: High risk HPV DNA testing regardless of pap results. Actual Specimen Date: 07/30/12 LMP If Unknown: 04/2012 Date of Last Specimen: 07/22/11 IUD: N ?: N Post Menopausal?: N Hysterectomy?: N Signed (signature on file) Naun Max MD 1319 This Pap test was evaluated with the assistance of the iSTAR MedicalPrep Test Imaging System. Due to cytologic findings at the supervisor winter microscope, comprehensive manual rescreening by a Psychiatric Technician may be required. The Pap Smear is [...] performed at Main Lab DEPARTMENT OF PATHOLOGY, [facility] [employer] [place], [place] [address] Naun Max M.D. Director [facility] Permit #[id number] RUN DATE: 07/31/12 [facility] LAB LIVE PAGE 1 RUN TIME: [address] [place] [address] Specimen Inquiry Name: EDWIN ALMAZAN Ramirez : [address]: Heather Joshua MD Acct: [id number] Unit: [id number] AGE: 31 Location: [facility] Re07/30/12 SEX: F Status: REG REF SPEC: [id number] WAI: 07/30/12- [facility] DR: Heather Joshua MD REQ: [id number] RECD: 07/30/12 STATUS: SOUT _ ORDERED: IMAGE ANALYSIS, PAP SM PATH REV, HPV / Thin Prep FINAL DIAGNOSIS Negative for Intraepithelial lesion or Malignancy Reactive cellular changes associated with Inflammation (includes typical repair) COMMENTS: Specimen sent to [facility] in [place], [place] on 07/31/12. Results will be reported separately in an Addendum. A. Ectocervical/Endocervical Specimen Adequacy: Satisfactory of evaluation Transformation zone component identified Patient Information: HPV: High risk HPV DNA testing regardless of pap results. Actual Specimen Date: 07/30/12 LMP If Unknown: 04/2012 Date of Last Specimen: 07/22/11 IUD: N ?: N Post Menopausal?: N Hysterectomy?: N Signed (signature on file) Naun Max MD 1319 This Pap test was evaluated with the assistance of the iSTAR MedicalPrep Test Imaging System. Due to cytologic findings at the supervisor winter microscope, comprehensive manual rescreening by a Psychiatric Technician may be required. The Pap Smear is [...] performed at Main Lab DEPARTMENT OF PATHOLOGY, [address] [place] [address] Naun Max M.D. Director [facility] Permit #[id number] 15 For types 16, 18, 31, 33, 35, 39, 45, 51, 52, 56, 58, 59 and 68. Test Performed by: [address] [address] Archival Records Clerk: Pete Ruiz III, M.D. 16 ---- RUN DATE: 07/23/11 [facility] NMI LIVE PAGE 1 RUN TIME: 1448 Specimen Inquiry RUN USER: INTERFACE -- Name: EDWIN ALMAZAN Status: REG REF Re07/22/11 Age/Sex: 30/F Unit#: [id number] Location: [facility] : [birth year] -- Specimen: [id number] SOUT Spec Date: 07/22/[address]: Heather chino MD Spec Type: CYTOLOGY [...] years. Final Interpretation electronically signed by: Romeo WASHINGTON([facility]) 07/23/11 144 6 -- -- DEPARTMENT OF PATHOLOGY, [address] [place] [address] [facility] Permit #[id number] Osvaldo Burnham M.D. [employer] Supplies Sales Dir beatty -- 17 ---- RUN DATE: 05/22/10 [facility] NMI LIVE PAGE 1 RUN TIME: 1556 Specimen Inquiry RUN USER: INTERFACE -- Name: EDWIN ALMAZAN Status: REG REF Re05/21/10 Age/Sex: 29/F Unit#: [id number] Location: [facility]. : [birth year] -- Specimen: [id number] LEILA Spec Date: 05/21/[address]: Heather chino MD Spec Type: CYTOLOGY [...] System. Due to cytologic findings at the supervisor winter microscope, comprehensive manual rescreening by a Psychiatric Technician was required. The Pap Smear is a [...] MAE 05/22/10 1556 -- DEPARTMENT OF PATHOLOGY, [address] [place] [address] [place] [facility] Permit #[id number] Naun Max M.D. Director Jesus Mae M.D. Engineering Supplies Sales Dir rogerio -- 18 ---- RUN DATE: 05/16/09 [facility] NMI LIVE PAGE 1 RUN TIME: 905 Specimen Inquiry RUN USER: INTERFACE -- Name: EDWIN ALMAZAN Status: REG REF Re05/15/09 Age/Sex: 28/F Unit#: [id number] Location: [facility]. : 79 -- Specimen: [id number] SOUT Spec Date: 05/15/[address]: Heather chino MD Spec Type: CYTOLOGY [...] years. Final Interpretation electronically signed by: Romeo WASHINGTON([facility]) 05/16/09 090 6 -- -- DEPARTMENT OF PATHOLOGY, [address] [place] [address] [facility] Permit #[id number] Osvaldo Burnham M.D. Assistant Dir ector -- 19 ---- RUN DATE: 10/25/08 [facility] NMI LIVE PAGE 1 RUN TIME: 912 Specimen Inquiry RUN USER: INTERFACE -- Name: DEWIN ALMAZAN Status: REG REF Re10/24/08 Age/Sex: 28/F Unit#: [id number] Location: [facility] : 79 -- Specimen: [id number] LEILA Spec Date: 10/24/[address]: Heather chino MD Spec Type: CYTOLOGY [...] years. Final Interpretation electronically signed by: Kamala ZUNIGA([facility]) 10/25/08 0913 -- -- DEPARTMENT OF PATHOLOGY, [address] [place] [address] [facility] Permit #[id number] Naun Max M.D. Director Jesus Mae M.D. Engineering Supplies Sales Dir rogerio -- 19 ---- RUN DATE: 04/19/08 [facility] NMI LIVE PAGE 1 RUN TIME: 1444 Specimen Inquiry RUN USER: INTERFACE -- Name: EDWIN ALMAZAN Status: REG REF Re04/18/08 Age/Sex: 27/F Unit#: [id number] Location: [facility] : 79 -- Specimen: [id number] [id number] Spec Date: 04/18/[address]: Heather chino MD Spec Type: CYTOLOGY Received: 04/18/08-5910 Copies to: SOURCE ECTOCERVICAL/ENDOCERVICAL Thin Prep with [...] was evaluated with the assistance of the iSTAR MedicalPrep Pap Test Imaging System. Due to cytologic findings at the supervisor winter microscope, comprehensive manual rescreening by a Psychiatric Technician was required. The Pap Smear is a [...] three years. Initial evaluation performed by Romeo WASHINGTON([facility]) 04/19/08 -- DEPARTMENT OF PATHOLOGY, [address] [place] [address] [facility] Permit #[id number] Naun Max M.D. Director of Laboratories -- -- RUN DATE: 04/19/08 [facility] NMI LIVE PAGE 2 RUN TIME: 1444 Specimen Inquiry RUN USER: INTERFACE -- Name: EDWIN ALMAZAN Status: REG REF Re04/18/08 Age/Sex: 27/F Unit#: [id number] Location: [facility] : 79 -- -- CONTINUED -- Final Interpretation electronically signed by: NAUN MAX MD 04/19/08 14 44 -- -- DEPARTMENT OF PATHOLOGY, [address] [place] [address] [facility] Permit #[id number] 010 Naun Max M.D. Director of Laboratories -- 21 ---- RUN DATE: 07/01/07 [facility] NMI LIVE PAGE 1 RUN TIME: 1409 Specimen Inquiry RUN USER: INTERFACE [id number] EDWIN ALMAZAN / <REG REF 06/18> ([id number]) Yessi Thibodeaux CNP -- Specimen: [id number] SOUT Spec Date: 06/18/[address]: Yessi Kellogg mp, CNP Spec Type: CYTOLOGY Received: 06/19/07-1412 Copies to: [...] significance (ASC-US) * NOTE [facility] [place] high risk HPV DNA testing on 06/24/07 at 1600 by DB. ADDENDUM Addendum #1 Entered: 07/01/07-1409 [facility] Human Papilloma Virus test results received with preparation and diagnosis [facility] [place] [place]. Results: POSITIVE High Risk (HPV types 16, 18, 31, 33, 35, 39, 45, 51, 52, 56, 58, 59, 68) (Original consultation report to follow). -- DEPARTMENT OF PATHOLOGY, [address] [place] [address] [facility] Permit #[id number] 010 Naun Max M.D. Director of Laboratories -- -- RUN DATE: 07/01/07 [facility] NMI LIVE PAGE 2 RUN TIME: 1409 Specimen Inquiry RUN USER: INTERFACE -- SPEC #: [id number] PATIENT: EDWIN ALMAZAN #[id number] (Continued) -- ADDENDUM (Continued) Addendum Review Romeo WASHINGTON([facility]) 07/01/07 -- This Pap test was evaluated with the assistance of the ThinPrep Pap Test Imaging System. Due to cytologic findings at the supervisor winter microscope, comprehensive manual rescreening by a Psychiatric Technician was required. The Pap Smear is a [...] 17 04 -- -- DEPARTMENT OF PATHOLOGY, [address] [place] [address] [facility] Permit #[id number] 010 Naun Max M.D. Director of [employer] -- 22 ---- RUN DATE: 04/01/07 [facility] NMI LIVE PAGE 1 RUN TIME: 1434 Specimen Inquiry RUN USER: INTERFACE [id number] EDWIN ALMAZAN / <REG REF 03/18> ([id number]) Yessi Thibodeaux CNP -- Specimen: [id number] SOUT Spec Date: 03/18/[address]: Yessi Kellogg [facility] Spec Type: CYTOLOGY Received: 03/23/0700 Copies to: SOURCE ECTOCERVICAL/ENDOCERVICAL Thin Prep with [...] significance (ASC-US) * NOTE Specimen sent to [facility], [place], [place] for high risk HPV DNA testing on 03/25/07 at 1600 by DB. ADDENDUM Addendum #1 Entered: 04/01/07-1433 [facility] Human Papilloma Virus test results received with preparation and diagnosis [facility] [place]. Results: POSITIVE High Risk (HPV types 16, 18, 31, 33, 35, 39, 45, 51, 52, 56, 58, 59, 68) (Original consultation report to follow). -- DEPARTMENT OF PATHOLOGY, [address] [place] [address] [facility] Permit #[id number] 010 Naun Max M.D. Director of Laboratories Anand Kramer II Pathologist -- -- RUN DATE: 04/01/07 [facility] NMI LIVE PAGE 2 RUN TIME: 1434 Specimen Inquiry RUN USER: INTERFACE -- SPEC #: [id number] PATIENT: ESTEPHANIEEDWIN S #[id number] (Continued) -- ADDENDUM (Continued) Addendum Review Kamala ZUNIGA([facility]) 04/01/07 -- This Pap test was evaluated with the assistance of the iSTAR MedicalPrePlayJam Pap Test Imaging System. Due to cytologic findings at the supervisor winter microscope, comprehensive manual rescreening by a Psychiatric Technician was required. The Pap Smear is a [...] three years. Initial evaluation performed by Romeo WASHINGTON([facility]) 03/24/07 Final Interpretation electronically signed by: MIGUEL MACHUCA MD 03/24/07 1512 -- -- DEPARTMENT OF PATHOLOGY, [address] [place] [address] [facility] Permit #[id number] 010 Naun Max M.D. Director of Laboratories Miguel Machuca II, M.D . Pathologist -- 23 . A negative result does not preclude the presence of a C.trachomatis or N.gonorrhoeae infection because results are dependent on adequate specimen collection, absence of inhibitors, and sufficient rRNA to be detected. Test results may be affected by improper specimen collection, improper specimen storage, technical error, or specimen mixup. . 24 . A negative result does not preclude the presence of a C.trachomatis or N.gonorrhoeae infection because results are dependent on adequate specimen collection, absence of inhibitors, and sufficient rRNA to be detected. Test results may be affected by improper specimen collection, improper specimen storage, technical error, or specimen mixup. . 25 ---- RUN DATE: 09/25/06 [facility] NMI LIVE PAGE 1 RUN TIME: 1155 Specimen Inquiry RUN USER: INTERFACE [id number] ESTEPHANIEEDWIN <REG REF 09/21> ([id number]) Roland SERNA CNM -- Specimen: [id number] SOUT Spec Date: 09/21/[address]: Roland Ndiaye CNM Spec Type: CYTOLOGY Received: 09/23/06-1004 Copies to: SOURCE ECTOCERVICAL/ENDOCERVICAL Thin Prep with Reflex HPV Test PATIENT INFORMATION ACTUAL COLLECTION DATE: 09/21/06 PREVIOUS ABNORMAL PAP SMEARS Yes LAST MENSTRUAL PERIOD: 08/21/06 DATE OF PRIOR SPECIMEN: 05/21/06 PREVIOUS CYTOLOGY/SURGICAL SPECIMEN #: [id number] (pathology) Low grade squamous intraepithelial lesion. Human papilloma virus. Colposcopy 05/21/06 Mild dysplasia ADEQUACY OF SPECIMEN Satisfactory for evaluation * Transformation zone component identified * DIAGNOSIS EPITHELIAL CELL ABNORMALITIES * Low grade squamous intraepithelial lesion (LSIL) encompassing: * HPV/mild dysplasia/SALVADOR 1 * SUGGESTIONS Consider colposcopy, if clinically indicated * This Pap test was evaluated with the assistance of the iSTAR MedicalPrep Pap Test Imaging System. Due to cytologic findings at the supervisor winter microscope, comprehensive manual rescreening by a Psychiatric Technician was required. The Pap Smear is a [...] to three years. -- DEPARTMENT OF PATHOLOGY, [address] [place] [address] [facility] Permit #[id number] 010 Miguel Machuca II, M.D. Director Osvaldo Burnham irector -- -- RUN DATE: 09/25/06 [facility] NMI LIVE PAGE 2 RUN TIME: 1155 Specimen Inquiry RUN USER: INTERFACE -- SPEC #: [id number] PATIENT: EDWIN ALMAZAN #[id number] (Continued) -- Initial evaluation performed by Romeo WASHINGTON([facility]) 09/25/06 Final Interpretation electronically signed by: MIGUEL MACHUCA MD 09/25/06 -- -- DEPARTMENT OF PATHOLOGY, [address] [place] [address] [facility] Permit #[id number] 010 Miguel Machuca II, M.D. Director Osvaldo Burnham -- 25 ---- RUN DATE: 05/22/06 [facility] NMI LIVE PAGE 1 RUN TIME: 1223 Specimen Inquiry RUN USER: INTERFACE [id number] KRISTYN ALMAZANADI Guzmán <REG REF 05/20> ([id number]) [facility] Irma TSE -- Specimen: [id number] SOUT Spec Date: 05/20/[address]: Yessi Kellogg mp MANAGING ATTORNEY. Spec Type: SURGICAL P Received: 05/21/06 Copies [...] is received in formalin labelled "Edwin Almazan, ECC" and consists of a 0.4 cm. mucoid majano aggregate. Total, one block. DIAGNOSIS 1) Cervix, biopsy - A) Squamous metaplasia. B) Chronic cervicitis. C) No dysplasia or malignancy. 2) Endocervix, curettage - No dysplasia or malignancy, modest amount of material received. Signed Electronically signed MIGUEL MACHUCA MD 12/07/06 -- -- DEPARTMENT OF PATHOLOGY, [address] [place] [address] [facility] Permit #[id number] 010 Miguel Machuca II, M.D. Director Osvaldo Burnham irector -- Procedures Date CPT Code Description Status 03/05/2018 47346 Colposcopy W/Biopsy Cervix/Endocervical Curettage Completed 04/17/2016 76825 Insert Intrauterine Device Completed 03/19/2016 81086 Echography Transvaginal Completed 04/18/2008 29291 Injection Intramuscular Or Subcutaneous Completed 05/20/2006 15628 Colposcopy W/Biopsy Cervix/Endocervical Curettage Completed 05/20/2006 40279 Colposcopy W/Biopsy Cervix/Endocervical Curettage Completed Encounters Type Date Location Provider CPT E/M Dx Office Visit 03/17/2018 9:00a [facility] [place] [address] D06.9 Office Visit 12/30/2017 3:30p [place] [address] Z01.419 Z12.4 Office Visit 11/04/2016 8:40a [facility] Yessi Hansen ANP-C 56260 N76.0 Office Visit 09/06/2016 8:00a [place] [address] Z01.419 Office Visit 05/16/2016 2:30p [place] [address] Z30.431 N93.8 Office Visit 03/19/2016 3:20p [facility] Yessi Hansen ANP-C 25726 N93.0 N92.6 Office Visit 02/21/2016 8:20a [facility] Yessi Hansen ANP-C 73831 N93.0 Office Visit 09/01/2015 8:00a [place] [address] Z12.4 Z01.419 Office Visit 08/16/2014 9:00a [place] [address] V72.31 V76.2 Office Visit 08/09/2013 8:00a [place] [address] V76.2 V72.31 278.01 Office Visit 07/30/2012 8:00a [place] [address] V72.31 V76.2 Office Visit 07/22/2011 3:00p [place] [address] V76.2 V72.31 Office Visit 05/21/2010 11:00a [place] [address] V76.2 V72.31 Office Visit 05/15/2009 8:00a [place] [address] V72.31 V76.2 Office Visit 10/24/2008 8:00a [place] [address] 622.10 V25.09 Office Visit 04/18/2008 8:00a [place] [address] V04.81 V72.31 V76.2 Office Visit 10/23/2007 2:20p [place] [address] V72.40 V72.41 622.10 V72.42 V72.84 Office Visit 06/18/2007 8:00a [facility] Yessi HansenMARVIN 69029 622.10 Office Visit 03/18/2007 3:40p [facility] Yessi HansenMARVIN 11470 V72.31 V77.1 V78.0 V76.2 V25.49 V74.5 Office Visit 09/19/2006 10:20a [facility] Hemanth ElNPaula 45897 795.00 Office Visit 06/17/2006 10:40a [facility] Yessi HansenMARVIN 23568 622.10 Office Visit 05/20/2006 1:00p [facility] Yessi HansenMARVIN 80158 622.10 Plan of Care Future Appointment(s):04/14/2018 9:45 am - Heather Joshua MD at [facility]03/19/2018 9:30 am - Heather Joshua MD at [place] [address] - Heather Joshua, MDD06.9 Carcinoma in situ of cervix, unspecifiedComments: reviewed pathology report with patient and copy given to patient. Pt with glandular involvement on ECC and concern of possible invasive cervical cancer. Recommend given this to proceed with cold knife conization. Pt is aware of risk associated with this procedure to include but not limited to infection, bleeding , cervical incompetence, damage to internal organs, and possible need for further surgeryand consult with sewing inspector oncology. consent form personally reviewed and signed with patient.
--- NOTE | 2018-04-15 10:45 | ED ---
Shortness of Breath - HPI Summary HPI Summary: This patient is a 37 year old F presenting to ED with a chief complaint of SOB since last night, secondary to a stabbing pain in her lower back bilaterally. She also reports that she has a pickline and an abscess on her L side which is still draining (drainage put in on 04/05/2018). She saw her ELSY Ferguson, yesterday who [facility]. The patient rates the pain 5/10 in severity. Symptoms aggravated by deep breaths. Symptoms alleviated by nothing. Patient denies N/V, coughing, discomfort at the end of voiding, and fever. She denies PMHx of blood clots or clotting disorder in her FHx. - History of Current Complaint Chief Complaint: EDShortnessOfBreath Time Seen by Provider: 04/15/18 10:31 Hx Obtained From: Patient Onset/Duration: Sudden Onset, Lasting Days - since last night, Still Present Timing: Constant Current Severity: Moderate - 5/10 Aggrevating Factors: Deep Breaths Alleviating Factors: Nothing - Allergy/Home Medications Allergies/Adverse Reactions: Allergies Allergy/AdvReac Type Severity Reaction Status Date / Time No Known Allergies Allergy Verified 04/15/18 10:18 PMH/Surg Hx/FS Hx/Imm Hx Endocrine/Hematology History: Denies: Hx Diabetes, Hx Thyroid Disease Cardiovascular History: Reports: Hx Hypercholesterolemia Denies: Hx Hypertension Respiratory History: Reports: Hx Seasonal Allergies, Other Respiratory Problems/ Disorders - Pet allergies. Denies: Hx Asthma, Hx Chronic Obstructive Pulmonary Disease (COPD) GI History: Reports: Hx Irritable Bowel Denies: Hx Ulcer History: Denies: Hx Renal Disease Musculoskeletal History: Reports: Other Musculoskeletal History - Bilateral knee pain, (right)>(left) Sensory History: Reports: Hx Contacts or Glasses - INSTRUCTS GIVEN, Hx Hearing Aid - right, Other Sensory Impairments - Mild tingling hands & feet, never evaluated. Denies: Hx Cataracts Opthamlomology History: Reports: Hx Contacts or Glasses - INSTRUCTS GIVEN, Other Sensory Impairments - Mild tingling hands & feet, never evaluated. Denies: Hx Cataracts Psychiatric History: Reports: Hx Depression - on meds - Cancer History Cancer Type, Location and Year: newly diagnosed cervical ca - Surgical History Surgery Procedure, Year, and Place: 06/25 [facility] - tonsils. dental (few teeth pulled prior to orthodontic work). barriatric surgery, 2006, [facility] Hx Anesthesia Reactions: No Infectious Disease History: No Infectious Disease History: Denies: Hx Clostridium Difficile, Hx Hepatitis, Hx Human Immunodeficiency Virus (HIV), Hx of Known/Suspected MRSA, Hx Shingles, Hx Tuberculosis, Hx Known/ Suspected VRE, Hx Known/Suspected VRSA, History Other Infectious Disease, Traveled Outside the [place] in Last 30 Days - Family History Known Family History: Negative: Hypertension - Social History Alcohol Use: Occasionally Alcohol Amount: 2 per week Hx Substance Use: No Substance Use Type: Reports: None Hx Tobacco Use: No Smoking Status (MU): Never Smoked Tobacco Review of Systems Negative: Fever Positive: Shortness Of Breath - and pain with deep breaths. Negative: Cough Negative: Vomiting, Nausea Positive: other - discomfort at the end of voiding Positive: Other - stabbing pain in her lower back bilaterally Positive: Other - abscess on her L side which is still draining (drainage put in on 04/05/2018) All Other Systems Reviewed And Are Negative: Yes Physical Exam - Summary Physical Exam Summary: GENERAL: Patient is a well-developed and nourished F who is lying comfortable in the stretcher. Patient is not in any acute respiratory distress. HEAD AND FACE: Normocephalic EYES: PERRLA, EOMI x 2. EARS: Hearing grossly intact. MOUTH: Oropharynx within normal limits. NECK: Supple, trachea is midline, no adenopathy, no JVD, no carotid bruit. CHEST: Symmetric, no tenderness at palpation LUNGS: Crackles on the R. Decreased breath sounds in the bases bilaterally. CVS: Regular rate and rhythm, S1 and S2 present, no murmurs or gallops appreciated. ABDOMEN: Soft, non-tender. Bowel sounds are normal. No abdominal abnormal pulsations. drain attached to left pelvic region EXTREMITIES: Full ROM in all major joints, no edema, no cyanosis or clubbing. NEURO: Alert and oriented x 3. No acute neurological deficits. Speech is normal and follows commands. SKIN: Dry and warm Triage Information Reviewed: Yes Vital Signs On Initial Exam: Initial Vitals Temp Pulse Resp BP Pulse Ox 100.2 F 83 20 112/72 97 04/15/18 10:14 04/15/18 10:14 04/15/18 10:14 04/15/18 10:14 04/15/18 10:14 Vital Signs Reviewed: Yes Diagnostics - Vital Signs Vital Signs Temp Pulse Resp BP Pulse Ox 04/15/18 10:14 100.2 F 83 20 112/72 97 - Laboratory Result Diagrams: 04/15/18 11:19 04/15/18 11:19 Lab Statement: Any lab studies that have been ordered have been reviewed, and results considered in the medical decision making process. - CT CTA Chest/Thorax CT Interpretation Completed By: Radiologist - 1. BILATERAL, RIGHT GREATER THAN LEFT, PLEURAL EFFUSIONS WITH BIBASILAR ATELECTASIS. 2. NO PULMONARY ARTERIAL FILLING DEFECT TO SUGGEST PULMONARY EMBOLISM. Dr. Colby has reviewed this radiology report. - EKG 1031 Cardiac Rate: NL - 81 BPM EKG Rhythm: Sinus Rhythm Summary of EKG Findings: Normal axis Re-Evaluation - Re-Evaluation First Eval Re-Evaluation Time: 14:46 Comment: Discussed results with the patient and plan for discharge. Patient understands and agrees. Course/Dx - Course Assessment/Plan: This patient is a 37 year old F presenting to ED with a chief complaint of SOB since last night, secondary to a stabbing pain in her lower back bilaterally. In the ED course, the patient was given fluids. CTA chest/ thorax reveals 1. BILATERAL, RIGHT GREATER THAN LEFT, PLEURAL EFFUSIONS WITH BIBASILAR ATELECTASIS. 2. NO PULMONARY ARTERIAL FILLING DEFECT TO SUGGEST PULMONARY EMBOLISM. This patient will be discharged. I discussed results with patient and she reports feeling better. She is hemodynamically stable and safe for discharge. Strict return precautions given and she will otherwise follow up with her PCP. Patient has an incentive spirometry at home that I instructed her to start using as prescribed - Diagnoses Provider Diagnoses: Pleural effusion Discharge - Sign-Out/Discharge Documenting (check all that apply): Patient Departure - discharge - Discharge Plan Condition: Stable Disposition: HOME Patient Education Materials: How to Use an Incentive Spirometer (ED), Pleural Effusion (ED) Referrals: Meghan Tarango MD [Primary Care Provider] - (Follow up with your primary care physician in 1-3 days.) Additional Instructions: Follow up with your primary care physician in 1-3 days. RETURN TO THE EMERGENCY DEPARTMENT FOR CHANGING OR WORSENING SYMPTOMS. - Billing Disposition and Condition Condition: STABLE Disposition: Home - Attestation Statements Document Initiated by Scribe: Yes Documenting Scribe: Ja Pinon Provider For Whom Scribe is Documenting (Include Credential): Justin Colby MD Scribe Attestation: I, Ja Pinon, scribed for Justin Colby MD on 04/17/18 at 0354. Scribe Documentation Reviewed: Yes Provider Attestation: The documentation as recorded by the [email or web address] accurately reflects the service I personally performed and the decisions made by me, Justin Colby MD
[2018-04-15 11:25] LABS: ABS Basophils 0.1 10^3/ul (0-0.2); ABS Eosinophils 0.2 10^3/ul (0-0.6); ABS Lymphocytes 1.7 10^3/ul (1.0-4.8); ABS Neutrophils 14.2 10^3/ul (1.5-7.7); ABS Nucleated RBC 0 10^3/ul; Eosinophil % 1.1 % (0-6); Hematocrit 31 % (35-47); Hemoglobin 10.6 g/dl (12.0-16.0); Lymphocyte % 9.6 % (25-47); Mean Corpuscular HGB Conc 34 g/dl (31-36); Mean Corpuscular Hemoglobin 32 pg (27-31); Mean Corpuscular Volume 93 fL (80-97); Mean Platelet Volume 8.4 um3 (7.4-10.4); Nucleated Red Blood Cells % 0; Platelet Count 466 10^3/ul (150-450); Red Blood Count 3.37 10^6/ul (4.00-5.40); Red Cell Distribution Width 13 % (10.5-15); White Blood Count 17.1 10^3/ul (3.5-10.8)
[2018-04-15 11:34] LABS: INR 1.2 (0.77-1.02)
[2018-04-15 11:49] LABS: EGFR Non-African American 103.9 (>60)
--- NOTE | 2018-04-15 13:18 | RAD ---
HISTORY: SOB eval for PE COMPARISONS: None TECHNIQUE: Multiple contiguous axial CT scans of the chest were obtained after the administration of nonionic intravenous contrast, timed to the pulmonary arterial phase of contrast enhancement.. Coronal and sagittal multiplanar reformations are also submitted for review. FINDINGS: Evaluation is limited secondary to patient motion artifact. NECK AND THYROID: The lower neck and thyroid are unremarkable. CHEST WALL: There is no lower cervical, axillary, or supraclavicular lymphadenopathy by size criteria. HEART AND PERICARDIUM: The heart is unremarkable. AORTA AND PULMONARY VASCULATURE: There is no pulmonary arterial filling defect to suggest pulmonary embolism. There is no linear filling defect within the aorta to suggest aortic dissection. MEDIASTINUM: There is no mediastinal lymphadenopathy by size criteria. LORE: There is no hilar lymphadenopathy by size criteria. AIRWAY AND ESOPHAGUS: The airway is unremarkable, without endobronchial filling defect. The esophagus is grossly normal. LUNG PARENCHYMA: The lung volumes are low. There is atelectasis of the lower lobes bilaterally. PLEURA: There are moderate bilateral pleural effusions, greater on the right than on the left. UPPER ABDOMEN: The upper abdomen is unremarkable. BONES AND SOFT TISSUES: No bone or soft tissue abnormalities are noted. OTHER: None. IMPRESSION: 1. BILATERAL, RIGHT GREATER THAN LEFT, PLEURAL EFFUSIONS WITH BIBASILAR ATELECTASIS. 2. NO PULMONARY ARTERIAL FILLING DEFECT TO SUGGEST PULMONARY EMBOLISM.
[2018-04-15 14:00] LABS: Urine Appearance Cloudy; Urine Blood Negative (Negative); Urine Color Straw; Urine Ketones Negative (Negative); Urine Protein Negative (Negative); Urine Specific Gravity 1.009 (1.010-1.030); Urine Urobilinogen Negative (Negative)
[2018-04-15 15:24] VITALS: BP 130/84
== END | disposition home or self-care (01) ==
LOC: ED 09:48
DX: J90 Pleural effusion, not elsewhere classified (principal); R06.02 Shortness of breath
CPT/HCPCS: 36415; 71275; 80053; 81003; 83605; 83735; 83880; 84484; 84702; 85025; 85610; 85730; 93005; 96361; 96374; 96376; 99284; J2270; Q9967